=== PATIENT | female | born 1945 | race Caucasian/White ===

== ENCOUNTER 2020-09-24 07:19 | Inpatient (IN) | payer MEDICARE, SELFPAY ==
[2020-09-24] VITALS (11 sets, daily range): BP systolic 87–110; BP diastolic 46–65; PULSE 66–111; RESP 16–20; TEMP 37–37.7; O2SAT 93–98; BMI 24.0
--- NOTE | 2020-09-24 07:32 | XR_ITS ---
EXAMINATION: XR CHEST CLINICAL INFORMATION: Dyspnea COMPARISON: None TECHNIQUE: AP portable view of the chest was obtained. FINDINGS: There is bilateral mild interstitial prominence lung bases without confluent disease identified. Bibasilar atelectasis appears to be present and I cannot rule out small right pleural effusion. Heart normal size. No evidence of pulmonary edema. No pneumothorax. XR/XR chest 1V IMPRESSION: Mild interstitial disease lung bases which may be acute or chronic in nature. No significant confluent parenchymal disease with question small right pleural effusion.
--- NOTE | 2020-09-24 07:32 | ECG_ITS ---
Test Reason : SOB Blood Pressure : / mmHG Vent. Rate : 092 BPM Atrial Rate : 092 BPM P-R Int : 140 ms QRS Dur : 058 ms QT Int : 380 ms P-R-T Axes : 070 063 063 degrees QTc Int : 469 ms Sinus rhythm with frequent Premature ventricular complexes Possible Left atrial enlargement Nonspecific ST and T wave abnormality Abnormal ECG No previous ECGs available Referred By: Mckenna Crarion Electronically Signed By:SANDRA GUEVARA MD
--- NOTE | 2020-09-24 07:34 | ED.SOB ---
HPI - SOB/Dyspnea General Chief Complaint: Dyspnea Stated Complaint: Covid Symptoms Time Seen by Provider: 09/24/20 07:31 Source: patient Mode of arrival: ambulatory Limitations: no limitations History of Present Illness MD elicited complaint: shortness of breath Pertinent past history: other (around daughter who just tested positive for COVID) Onset (ago): day(s) (yesterday) Context: recent illness (on macrobid for UTI ) Timing: intermittent Severity: mild Exacerbating factors: exertion Relieving factors: rest Associated symptoms: cough, dizziness and lightheadedness Treatment prior to arrival: none Related Data Home Medications Medication Instructions Recorded Confirmed No Known Home Meds 09/24/20 09/24/20 Allergies Allergy/AdvReac Type Severity Reaction Status Date / Time No Known Allergies Allergy Verified 09/24/20 07:32 Review of Systems Review of Systems: Constitutional : No Fever, pos Chills ENT/Mouth : No sore throat, No Rhinorrhea, No Swallowing Difficulty Eyes: No Eye Pain, No Swelling, No Redness Cardiovascular : No Chest Pain, positive SOB, No Orthopnea, no Edema Respiratory : No Cough, No Sputum, No Wheezing, positive dyspnea Gastrointestinal : No Nausea, No Vomiting, No Diarrhea, No abdominal Pain, No Hematochezia, No Melena Genitourinary : No Dysuria, No Urinary Frequency, No Hematuria Musculoskeletal : No joint pain, No Myalgias Skin : No Skin Lesions, No rash Neuro : No Weakness, No Numbness, pos Dizziness, No Headache Psych : No Anxiety/Panic, No Depression All other systems reviewed and are negative PMFSH Past Medical History Attestation statement: The following information was validated with the patient. Medical History (Updated 09/24/20 @ 15:37 by PATRICIA Tate) Tobacco dependence UTI (urinary tract infection) Surgical History (Updated 09/24/20 @ 15:34 by PATRICIA Tate) No significant past surgical history Family History Family History Father Stroke Social History Social History (Updated 09/24/20 @ 15:34 by PATRICIA Tate) Alcohol intake: never Smoking Status: Current every day smoker Packs Per Day: 1 Use of substances other than those prescribed or required for medical reasons: No Advance Directives: No Advance Directives Information Provided: No Physical Exam Vital Signs: Vital Signs: Last Vital Signs Temp 98.9 F 09/24/20 15:14 Pulse 75 09/24/20 15:14 Resp 16 09/24/20 15:14 BP 93/65 09/24/20 15:30 Pulse Ox 97 09/24/20 15:14 Body Mass Index 24.0 Appearance: Alert. Oriented X3. No acute distress. Eyes: Pupils equal, round and reactive to light. ENT: Pharynx normal. Neck: Normal inspection. Neck supple. CVS: Normal heart rate and rhythm. Pulses normal. Respiratory: No respiratory distress. Breath sounds diminished. Abdomen: Soft and non-tender. Skin: Skin warm and dry. Normal skin color. Normal skin turgor. superficial skin tear dorsum of left hand Extremities: No lower extremity edema. No calf ttp Neuro: Oriented X 3. No motor deficit. No sensory deficit. Course Course Course Narrative: BP 87/51 - 88% with ambulation on 3L NC, covid negative, ddimer high will possibly need CTA at this time, has no chest pain, 500cc bolus ordered, ceftriaxone and azithromycin ordered, added on dexamethasone given suspected COVID based off history and presentation - 30cc/kg bolus held in light of possible ARDs complication her labs, lactic acidosis and hypotension likely due to COVID infection and not bacterial infection. BPs have been low but she is asymptomatic - her HR has been in 80s she is voiding and up and walking - she is alert and oriented x 3, will discuss with ICU at this time I do not think she needs ICU or pressors at the moment, gentle hydration ordered BP 90/44 pending call back from ICU [id number] BP now 97/56 - ICU has reviewed as well, no need for ICU at this time, ECHO - normal RV IVC collapses will give additional IVF 250cc bolus MDM - SOB/Dyspnea MDM Narrative Medical decision making narrative: 75 yo female with dyspnea, intermittent dizziness, low grade temps exposed to daughter who has COVID - patient denies sig PMH but has been a lifelong smoker at this time will need labs, CXR, COVID swab, albuterol INH, tylenol, EKG, ddimer dispo per results and findings, currently 95%on RA, suspect COVID infection. Lab Data Result diagrams: 09/24/20 07:54 09/24/20 07:54 Labs: Lab Results 09/24/20 09/24/20 09/24/20 Range/Units 07:53 07:54 07:54 WBC 12.3 H (4.8-10.8) X10*3/uL RBC 5.15 (4.20-5.50) X10*6/uL Hgb 15.2 (12.0-16.0) g/dl Hct 45.0 (37-47) % MCV 87.4 (80-98) fL MCH 29.5 (27.0-33.0) pg MCHC 33.8 (31.0-35.0) g/dl RDW 13.4 (11.0-16.0) % Plt Count 251 (160-400) X10*3/uL MPV 10.0 (9.4-12.3) fL Immature Gran % (Auto) Cancelled Neut % (Auto) Cancelled Lymph % (Auto) Cancelled [place] % (Auto) Cancelled Eos % (Auto) Cancelled Baso % (Auto) Cancelled Lymph # (Auto) Cancelled [place] # (Auto) Cancelled Eos # (Auto) Cancelled Baso # (Auto) Cancelled Abs Immat Gran (auto) Cancelled Absolute Neuts (auto) Cancelled Absolute Nucleated RBC 0.000 (0.0-0.012) X10*3/uL Nucleated RBC % (auto) 0.0 (0.0-0.2) /100WBC Neutrophils % (Manual) 63 (45-73) % Band Neutrophils % 26 H (3-5) % Lymphocytes % (Manual) 2 L (20-40) % Monocytes % (Manual) 4 (2-11) % Eosinophils % (Manual) 5 H (0-4) % Abs Neuts (Manual) 10.9 H (2.2-7.9) X10*3/uL Lymphocytes # (Manual) 0.2 L (0.6-4.8) X10*3/uL Monocytes # (Manual) 0.5 (0.0-1.2) X10*3/uL Eosinophils # (Manual) 0.6 (0.0-0.8) X10*3/UL Toxic Vacuolation PRESENT Platelet Estimate NORMAL (NORMAL) Plt Morphology Comment NORMAL RBC Morphology NOTED [place] Cells 1+ PT 14.2 H (10.8-13.0) SEC INR 1.2 H (0.9-1.1) APTT 32.9 (24.1-38.0) SEC D-Dimer 3170 NG/ML Sodium (135-145) mmol/L Potassium (3.3-5.1) mmol/l Chloride (96-108) mmol/L Carbon Dioxide (22-29) mmol/L Anion Gap (12-20) BUN (9-16) mg/dL Creatinine (0.5-1.4) mg/dL Estim Creat Clear Calc Estimated GFR Random Glucose (60-115) mg/dL Lactic Acid (0.5-2.0) mmol/L Lactic Acid Fup @ 2Hr (0.5-2.0) mmol/L Calcium (8.4-10.2) mg/dL Magnesium (1.6-2.6) mg/dL Ferritin (10-250) ng/mL Total Bilirubin (0.0-1.0) mg/dL Direct Bilirubin (0.0-0.5) mg/dL AST (5-31) U/L ALT (0-31) U/L Alkaline Phosphatase (39-117) U/L Lactate Dehydrogenase (122-220) U/L Troponin I High Sens 24.7 H (<3.5-17.0) ng/L B-Natriuretic Peptide 393 H (<100) pg/mL Total Protein (6.5-8.0) g/dL Albumin (3.5-5.0) g/dL Procalcitonin ng/mL Urine Color Urine Appearance Urine pH (5.0-8.0) Ur Specific [place] (1.005-1.025) Urine Protein (NEG-TRACE) MG/DL Urine Glucose (UA) (NEG) MG/DL Urine Ketones (NEG) MG/DL Urine Blood (NEG) Urine Nitrite (NEG) Ur Leukocyte Esterase (NEG) Urine RBC (0) /HPF Urine WBC (0-4) /HPF Ur Squamous Epith Cells /LPF Ur Renal Epithelial Cell /LPF Urine Bacteria /LPF Urine Mucus /LPF Coronavirus (PCR) (Negative) Influenza Type A (PCR) (Negative) Influenza Type B (PCR) (Negative) RSV RNA Qual (PCR) (Negative) 09/24/20 09/24/20 09/24/20 Range/Units 07:54 07:54 07:54 WBC (4.8-10.8) X10*3/uL RBC (4.20-5.50) X10*6/uL Hgb (12.0-16.0) g/dl Hct (37-47) % MCV (80-98) fL MCH (27.0-33.0) pg MCHC (31.0-35.0) g/dl RDW (11.0-16.0) % Plt Count (160-400) X10*3/uL MPV (9.4-12.3) fL Immature Gran % (Auto) Neut % (Auto) Lymph % (Auto) [place] % (Auto) Eos % (Auto) Baso % (Auto) Lymph # (Auto) [place] # (Auto) Eos # (Auto) Baso # (Auto) Abs Immat Gran (auto) Absolute Neuts (auto) Absolute Nucleated RBC (0.0-0.012) X10*3/uL Nucleated RBC % (auto) (0.0-0.2) /100WBC Neutrophils % (Manual) (45-73) % Band Neutrophils % (3-5) % Lymphocytes % (Manual) (20-40) % Monocytes % (Manual) (2-11) % Eosinophils % (Manual) (0-4) % Abs Neuts (Manual) (2.2-7.9) X10*3/uL Lymphocytes # (Manual) (0.6-4.8) X10*3/uL Monocytes # (Manual) (0.0-1.2) X10*3/uL Eosinophils # (Manual) (0.0-0.8) X10*3/UL Toxic Vacuolation Platelet Estimate (NORMAL) Plt Morphology Comment RBC Morphology [place] Cells PT (10.8-13.0) SEC INR (0.9-1.1) APTT (24.1-38.0) SEC D-Dimer NG/ML Sodium 135 (135-145) mmol/L Potassium 4.5 (3.3-5.1) mmol/l Chloride 99 (96-108) mmol/L Carbon Dioxide 24 (22-29) mmol/L Anion Gap 17 (12-20) BUN 19 H (9-16) mg/dL Creatinine 1.21 (0.5-1.4) mg/dL Estim Creat Clear Calc 35.7 Estimated GFR 44 Random Glucose 142 H (60-115) mg/dL Lactic Acid 3.4 H* (0.5-2.0) mmol/L Lactic Acid Fup @ 2Hr (0.5-2.0) mmol/L Calcium 8.7 (8.4-10.2) mg/dL Magnesium 1.9 (1.6-2.6) mg/dL Ferritin 361 H (10-250) ng/mL Total Bilirubin 1.0 (0.0-1.0) mg/dL Direct Bilirubin 0.5 (0.0-0.5) mg/dL AST 117 H (5-31) U/L ALT 90 H (0-31) U/L Alkaline Phosphatase 98 (39-117) U/L Lactate Dehydrogenase 417 H (122-220) U/L Troponin I High Sens (<3.5-17.0) ng/L B-Natriuretic Peptide (<100) pg/mL Total Protein 6.7 (6.5-8.0) g/dL Albumin 4.1 (3.5-5.0) g/dL Procalcitonin 0.49 ng/mL Urine Color Urine Appearance Urine pH (5.0-8.0) Ur Specific [place] (1.005-1.025) Urine Protein (NEG-TRACE) MG/DL Urine Glucose (UA) (NEG) MG/DL Urine Ketones (NEG) MG/DL Urine Blood (NEG) Urine Nitrite (NEG) Ur Leukocyte Esterase (NEG) Urine RBC (0) /HPF Urine WBC (0-4) /HPF Ur Squamous Epith Cells /LPF Ur Renal Epithelial Cell /LPF Urine Bacteria /LPF Urine Mucus /LPF Coronavirus (PCR) (Negative) Influenza Type A (PCR) (Negative) Influenza Type B (PCR) (Negative) RSV RNA Qual (PCR) (Negative) 09/24/20 09/24/20 09/24/20 Range/Units 08:01 08:55 10:27 WBC (4.8-10.8) X10*3/uL RBC (4.20-5.50) X10*6/uL Hgb (12.0-16.0) g/dl Hct (37-47) % MCV (80-98) fL MCH (27.0-33.0) pg MCHC (31.0-35.0) g/dl RDW (11.0-16.0) % Plt Count (160-400) X10*3/uL MPV (9.4-12.3) fL Immature Gran % (Auto) Neut % (Auto) Lymph % (Auto) [place] % (Auto) Eos % (Auto) Baso % (Auto) Lymph # (Auto) [place] # (Auto) Eos # (Auto) Baso # (Auto) Abs Immat Gran (auto) Absolute Neuts (auto) Absolute Nucleated RBC (0.0-0.012) X10*3/uL Nucleated RBC % (auto) (0.0-0.2) /100WBC Neutrophils % (Manual) (45-73) % Band Neutrophils % (3-5) % Lymphocytes % (Manual) (20-40) % Monocytes % (Manual) (2-11) % Eosinophils % (Manual) (0-4) % Abs Neuts (Manual) (2.2-7.9) X10*3/uL Lymphocytes # (Manual) (0.6-4.8) X10*3/uL Monocytes # (Manual) (0.0-1.2) X10*3/uL Eosinophils # (Manual) (0.0-0.8) X10*3/UL Toxic Vacuolation Platelet Estimate (NORMAL) Plt Morphology Comment RBC Morphology [place] Cells PT (10.8-13.0) SEC INR (0.9-1.1) APTT (24.1-38.0) SEC D-Dimer NG/ML Sodium (135-145) mmol/L Potassium (3.3-5.1) mmol/l Chloride (96-108) mmol/L Carbon Dioxide (22-29) mmol/L Anion Gap (12-20) BUN (9-16) mg/dL Creatinine (0.5-1.4) mg/dL Estim Creat Clear Calc Estimated GFR Random Glucose (60-115) mg/dL Lactic Acid (0.5-2.0) mmol/L Lactic Acid Fup @ 2Hr 1.3 (0.5-2.0) mmol/L Calcium (8.4-10.2) mg/dL Magnesium (1.6-2.6) mg/dL Ferritin (10-250) ng/mL Total Bilirubin (0.0-1.0) mg/dL Direct Bilirubin (0.0-0.5) mg/dL AST (5-31) U/L ALT (0-31) U/L Alkaline Phosphatase (39-117) U/L Lactate Dehydrogenase (122-220) U/L Troponin I High Sens (<3.5-17.0) ng/L B-Natriuretic Peptide (<100) pg/mL Total Protein (6.5-8.0) g/dL Albumin (3.5-5.0) g/dL Procalcitonin ng/mL Urine Color DARK YELLOW Urine Appearance HAZY Urine pH 5.5 (5.0-8.0) Ur Specific [place] 1.025 (1.005-1.025) Urine Protein 2+ H (NEG-TRACE) MG/DL Urine Glucose (UA) NEG (NEG) MG/DL Urine Ketones NEG (NEG) MG/DL Urine Blood 2+ H (NEG) Urine Nitrite NEG (NEG) Ur Leukocyte Esterase 2+ H (NEG) Urine RBC 5-9 H (0) /HPF Urine WBC 76-150 H (0-4) /HPF Ur Squamous Epith Cells 3+ /LPF Ur Renal Epithelial Cell 1+ /LPF Urine Bacteria 3+ /LPF Urine Mucus 3+ /LPF Coronavirus (PCR) NEGATIVE (Negative) Influenza Type A (PCR) NEGATIVE (Negative) Influenza Type B (PCR) NEGATIVE (Negative) RSV RNA Qual (PCR) NEGATIVE (Negative) ECG Data Attestation: I personally reviewed and interpreted this ECG as follows: ECG interpretation date: 09/24/20 ECG interpretation time: 08:40 Interpretation: Rate: 91 Rhythm: NSR with occ PVCs [place]: normal Normal P waves. Normal ROBBIE. Normal QRS complex. ST T wave : nonspecific no CARMELA, slight depression V5-V6 but artifact present qTC: normal prior studies: none The study has been interpreted contemporaneously by me. . Critical Care Time Critical Care Time Critical Care Time: Yes Total Critical Care Time: 60 Attestation: I attest to this time spent taking care of the patient Discharge Plan Discharge Clinical Impression: Acidosis, lactic, Pneumonia Patient Disposition: Admitted As Inpatient
[2020-09-24] MEDS: Albuterol Sulfate 90 MCG 8 GM INHALER 4 PUFF INHALE (07:40)
[2020-09-24] MEDS: Acetaminophen 325 MG TABLET 650 MG PO (07:40)
[2020-09-24 08:15] LABS: Hemoglobin 15.2 g/dl (12.0-16.0); Mean Corpuscular HGB Conc 33.8 g/dl (31.0-35.0); Mean Corpuscular Hemoglobin 29.5 pg (27.0-33.0); Mean Corpuscular Volume 87.4 fL (80-98); Platelet Count 251 X10*3/uL (160-400); Red Blood Count 5.15 X10*6/uL (4.20-5.50); Red Cell Distribution Width 13.4 % (11.0-16.0); White Blood Count 12.3 X10*3/uL (4.8-10.8)
[2020-09-24 08:36] LABS: D Dimer 3170 NG/ML; INTERNATIONAL NORM RATIO 1.2 (0.9-1.1); Partial Thromboplastin Time 32.9 SEC (24.1-38.0); Prothrombin Time 14.2 SEC (10.8-13.0)
[2020-09-24 08:37] LABS: Band Neutrophils Percent 26 % (3-5); Eosinophils Absolute Manual 0.6 X10*3/UL (0.0-0.8); Eosinophils Percent Manual 5 % (0-4); Lymphocytes Absolute Manual 0.2 X10*3/uL (0.6-4.8); Lymphocytes Percent Manual 2 % (20-40); Monocytes Absolute Manual 0.5 X10*3/uL (0.0-1.2); Monocytes Percent Manual 4 % (2-11); Neutrophils Absolute Manual 10.9 X10*3/uL (2.2-7.9); Neutrophils Percent Manual 63 % (45-73)
[2020-09-24 08:38] LABS: Burr Cells 1+; Platelet Estimate NORMAL (NORMAL); Platelet Morphology Comment NORMAL; RBC Morphology NOTED
[2020-09-24 08:39] LABS: Lactic Acid 3.4 mmol/L (0.5-2.0); Toxic Vacuolation PRESENT
[2020-09-24 08:42] LABS: Alanine Aminotransferase 90 U/L (0-31); Albumin Level 4.1 g/dL (3.5-5.0); Alkaline Phosphatase 98 U/L (39-117); Anion Gap 17 (12-20); Aspartate Amino Transferase 117 U/L (5-31); Bilirubin Direct 0.5 mg/dL (0.0-0.5); Blood Urea Nitrogen 19 mg/dL (9-16); Calcium 8.7 mg/dL (8.4-10.2); Carbon Dioxide 24 mmol/L (22-29); Chloride 99 mmol/L (96-108); Creatinine Clr Calc Pharmacy 35.7; Estimated Glomerular Filt Rate 44; Glucose Random 142 mg/dL (60-115); Lactate Dehydrogenase 417 U/L (122-220); Magnesium 1.9 mg/dL (1.6-2.6); Potassium 4.5 mmol/l (3.3-5.1); Sodium 135 mmol/L (135-145); Total Protein 6.7 g/dL (6.5-8.0)
[2020-09-24] MEDS: 0.9 % Sodium Chloride 500 ML IV ×2 (08:42→12:45)
[2020-09-24 08:50] LABS: Influenza A PCR NEGATIVE (Negative); Influenza B PCR NEGATIVE (Negative); Resp Syncy Virus RNA Qual PCR NEGATIVE (Negative); SARS COV2 PCR INHOUSE NEGATIVE (Negative)
[2020-09-24] MEDS: cefTRIAXone sodium 1 GM in 0.9 % Sodium Chloride 50 ML IV (08:51)
[2020-09-24 08:57] LABS: B Type Natriuretic Peptide 393 pg/mL (<100); Troponin-I High Sensitivity 24.7 ng/L (<3.5-17.0)
--- NOTE | 2020-09-24 09:17 | PC.NURSE ---
pt ambulated to bathroom for ua spec w slow, steady gait. upon return to pt room, pt found to be on 88% spo2 ra. placed on nc 3l o2/min, spo2 ^ 93%. pt rr even/unlabored at time of return to room. pt also found to be hypotensive, provider aware and at bedside.
[2020-09-24 09:24] LABS: Glucose Urine UA NEG (NEG); Leukocyte Esterase Urine 2+ (NEG); Nitrite Urine NEG (NEG); PH 5.5 (5.0-8.0); Specific Gravity - Urine 1.025 (1.005-1.025); Urine Blood 2+ (NEG); Urine Ketones NEG (NEG); Urine Protein 2+ MG/DL (NEG-TRACE)
[2020-09-24 09:27] LABS: Appearance Urine HAZY; Color Urine DARK YELLOW
[2020-09-24] MEDS: dexAMETHasone 6 MG TABLET PO (09:30)
[2020-09-24] MEDS: Azithromycin 500 MG TABLET PO (09:30)
[2020-09-24 09:33] LABS: Bacteria Urine 3+ /LPF; Renal Epithelial Cells Urine 1+ /LPF; Squamous Epithelial Cell Urine 3+ /LPF
[2020-09-24 09:34] LABS: Mucus Urine 3+ /LPF
--- NOTE | 2020-09-24 09:43 | PC.NURSE ---
provider at bedside to discuss plan for inpt admission. pt family updated on plan of care.
--- NOTE | 2020-09-24 09:44 | CT_ITS ---
EXAMINATION: CT CHEST WITHOUT CONTRAST CLINICAL INFORMATION: Weakness, fevers, suspected. COMPARISON: None TECHNIQUE: Multidetector volumetric CT imaging of the chest was done. Axial MIP volume rendering provided. Sagittal and coronal reformatted images were obtained. This CT examination was performed using dose optimization techniques as appropriate, variously including the following: *Automated exposure control *Adjustment of mA and/or kV according to patient size (this includes techniques or standardized protocols for targeted exams where dose is matched to indication/reason for exam; i.e. extremities or head) *Use of iterative reconstruction technique DLP: 144 mGy-cm FINDINGS: LAY OUT AND DETAIL DRAFTER: Hyperinflated lungs. LUNGS: There is centrilobular emphysema with bullous changes in the apices. There is a 5 minute left apical nodule and axial image 67/6, ill-defined 3 mm nodule left upper lobe axial image 195/6, mild focal thickening medial upper left major fissure axial image 190/6. There is patchy confluent infiltrate in both lung bases, right greater than left. There is mild bilateral lower lobe bronchiectasis. MEDIASTINUM: Heart size and the great vessels are normal caliber. The thyroid lobes are symmetrical. Central trachea and the bronchi widely patent. There are 1 cm pretracheal and aortic window lymph nodes. Minimal pericardial effusion seen anteriorly. Coronary artery calcifications are present. PLEURA: There is bilateral posterior pleural thickening/effusions. No calcified pleural lacks or pneumothorax. AXILLA: Small shotty lymph nodes seen in bilateral axilla. The chest wall is unremarkable. UPPER ABDOMEN: Visualized liver, spleen, pancreas are unremarkable. OSSEOUS STRUCTURES: No lytic or sclerotic process seen. CT/CT chest wo con IMPRESSION: Emphysema with bibasilar infiltrates and small bilateral pleural effusions/thickening
[2020-09-24 10:12] LABS: Reflex Lactate? Lactic Acid Added
[2020-09-24 10:15] LABS: Ferritin 361 ng/mL (10-250)
[2020-09-24 10:17] LABS: Procalcitonin 0.49 ng/mL
--- NOTE | 2020-09-24 11:04 | PC.NURSE ---
pt belongings dropped off by family member, pt is resting in stretcher, appears comfortable, spo2 and hr stable
[2020-09-24 11:08] LABS: ~Lactic Acid-LAB USE ONLY 1.3 mmol/L (0.5-2.0)
[2020-09-24] MEDS: 0.9 % Sodium Chloride 1,000 ML 250 ML IVCONT (11:41)
--- NOTE | 2020-09-24 11:41 | W.PM.CCCN ---
History of Present Illness Data of Consult Service Date: 09/24/20 Requesting physician: Mckenna Carrion Primary Care Provider: Olvin MIRAMONTES Reason for consult: Hypotension Asked by Dr. Carrion to see Mrs. Steve peres of hypotension. The patient is a 75 yo F with no PMHx. Never been hospitalized except to have children. The patient says she recently was treated for UTI with Macrobid. The patient was walking to the ED this morning because of dyspnea on exertion since yesterday, associated with cough, dizziness, and lightheadedness, and chills. Denied fever. No GI symptoms. The patient is a current everyday smoker. The patient does not know what her usual blood pressure is. She weighs 63 kg. In the ED she was nontoxic-appearing and not ill appearing. Heart rate initially was 111, with blood pressure 105/57, respiratory rate 18, and sat of 95% on room air. Temperature was 99.9 degrees. Blood pressure subsequently dropped to 87/51. Sat on ambulation with 3 L nasal cannula was 88%. Up to 98% at rest on 2.5 L nasal cannula. Labs in the ED notable for white count of 12.3 with 26% bands, 2% lymphocytes. Chemistries notable for BUN and creatinine 19/1.2. Bicarb was 24. Total bili was normal, AST and ALT were 117/90, LDH was 417, trop was 24, BNP was 393, Lactic acid was 3.4. D-dimer was 3170. Ferritin was 361, procalcitonin was 0.4. Respiratory virus panel, including coronavirus, was negative. Chest x-ray (my reading) shows somewhat hyper expanded lung melgar, with mild increased interstitial markings, all consistent with chronic lung disease. Both angles are very slightly blunted. Chest CT (my reading) shows marked increased interstitial markings and emphysematous changes. There are very small subtle posterior bibasilar infiltrates. The CT scan is clearly inconsistent with either COVID pneumonia or pulmonary edema. The patient was given low-dose volume resuscitation in the ED. Following that, the lactic acid was normal. I was then called to see the patient. On my brief exam, the patient looked entirely well. She was breathing easy with a respiratory rate of 20 with no increased work of breathing and sat of 98% on 2.5 L nasal cannula. Mental status was entirely normal. I viewed Dr. Carrion is a bedside echo. Biventricular size and function is normal. IVC is top-normal with less than 25% inspiratory collapse. IMPRESSION: 1. Chronic lung disease, undoubtedly secondary from smoking. 2. Acute hypoxemic respiratory insufficiency. The cause of this is unclear at this time. Coronavirus disease is obviously a prime candidate, given the local situation and given her known exposure. 3. Bilat pulmon infiltrates. Inconsist with COVID-19. Could possibly be early pneumonia, of any kind (viral or bacterial). [place] giving two days of empiric abx for bacterial CAP to see how things shake out. 4. Rule out COVID-19. Biomarkers are positive, altho nonspecific. No surprise that her COVID-19 PCR was negative; it is likely too early. I would isolate her and treat her for it, including enoxaparin, methylprednisolone, and Pepcid, as below. Would repeat her PCR in 4-5 days. If still negative at that time, can stop the treatment. No harm if we?re wrong. 5. Volume status. Her IVC suggests near adequate vol resusc. Suggest maybe another 250 cc, plus 50cc 25% albumin. Recommend the following: -Vitamin C 1000 mg po q 6 hours -Zinc 100 mg po daily -Melatonin 9 mg at night -Vitamin D3 2000 units daily -B complex vitamin daily -Enoxaparin ? mg/kg bid -Methylprednisolone 40 mg q 12 hourly -Famotidine 40 mg BID (IV or po) -Thiamine 200 mg po q 12 hours -Magnesium 2 g IV, then keep Mg between 2.0 and 2.4 mmol/l. -Atorvastatin 80 mg/day. Monitoring: Daily VBG, DDimer, CRP, Ferritin, procalcitonin, and Mg with her usual morning labs. No need for intensive care monitoring or mx at this time. Time: 50 min ([id number]) [facility] Past Medical History Medical History UTI (urinary tract infection) Social History Social History Alcohol intake: never Smoking Status: Current every day smoker Use of substances other than those prescribed or required for medical reasons: No Advance Directives: No Advance Directives Information Provided: No Meds Allergies Allergy/AdvReac Type Severity Reaction Status Date / Time No Known Allergies Allergy Verified 09/24/20 07:32 Home Medications Medication Instructions Recorded Confirmed Type No Known Home Meds 09/24/20 09/24/20 History Physical Exam Vital Signs: Vital Signs: Last Vital Signs Temp 99.0 F 09/24/20 10:37 Pulse 80 09/24/20 10:37 Resp 16 09/24/20 10:37 BP 97/56 L 09/24/20 11:38 Pulse Ox 98 09/24/20 10:37 Body Mass Index 24.0 Results Labs CBC & Chem 7: 09/24/20 07:54 09/24/20 07:54 Labs: Short CBC 09/24/20 Range/Units 07:54 WBC 12.3 H (4.8-10.8) X10*3/uL Hgb 15.2 (12.0-16.0) g/dl Hct 45.0 (37-47) % Plt Count 251 (160-400) X10*3/uL BMP 09/24/20 07:54 Sodium 135 Potassium 4.5 Chloride 99 Carbon Dioxide 24 BUN 19 H Creatinine 1.21 Calcium 8.7 Liver Function 09/24/20 Range/Units 07:54 Total Bilirubin 1.0 (0.0-1.0) mg/dL Direct Bilirubin 0.5 (0.0-0.5) mg/dL AST 117 H (5-31) U/L ALT 90 H (0-31) U/L Alkaline Phosphatase 98 (39-117) U/L Albumin 4.1 (3.5-5.0) g/dL Urine 09/24/20 Range/Units 08:55 Urine Color DARK YELLOW Urine Appearance HAZY Urine pH 5.5 (5.0-8.0) Ur Specific [place] 1.025 (1.005-1.025) Urine Protein 2+ H (NEG-TRACE) MG/DL Urine Glucose (UA) NEG (NEG) MG/DL
--- NOTE | 2020-09-24 11:43 | PC.NURSE ---
dr ontiveros and acting instructor at bedside for fast echo w us. medicated further per emar. pt changed to hospital attire.
[2020-09-24] MEDS: Albumin Human 25 % 100 ML IV (14:38)
--- NOTE | 2020-09-24 15:25 | NM_ITS ---
EXAMINATION: PULMONARY PERFUSION STUDY CLINICAL INFORMATION: Dyspnea, weakness, and fevers, suspected pulmonary emboli. COMPARISON: No previous lung scan is available for comparison. A radiograph the chest dated 09/24/2020, the same date as this lung scan, is available for comparison. Chest CT scan on the same date is also available. TECHNIQUE: Following the intravenous injection of 3.4 mCi Tc-99m MAA, an 8-view perfusion study was performed using a gamma scintillation camera. FINDINGS: No segmental perfusion defects are present. There is homogeneous distribution of activity bilaterally. There are no focal anatomic appearing perfusion defects present. NM/NM pul perfusion IMPRESSION: Normal radionuclide lung perfusion scan.
--- NOTE | 2020-09-24 15:26 | PM.IMHP ---
History of Present Illness Date of Service: 09/24/20 <PATRICIA Tate Last Filed: 09/24/20 15:57> Chief Complaint: flu-like symptoms <PATRICIA Tate Last Filed: 09/24/20 15:57> this is a 75-year-old female who presented to the emergency department today with multiple symptoms. Patient saw her daughter on MondaySeptember 19. Her daughter later tested positive for COVID-19. For the past 2 days she reports decreased p.o. intake, generalized weakness, body aches, dry cough. She denies fever. COVID screening in the emergency department was negative. Her lab work was significant for lactic acid 3.4, leukocytosis 12.3. Ferritin 361, LDH 417, procalcitonin 0.49. CT scan of the chest showed concern for pneumonia. She was started on IV antibiotics. patient also reports she is being treated for outpatient UTI with Macrobid. Her urinalysis today is positive. she denies any dysuria at this time. She denies vomiting or diarrhea. <PATRICIA Tate - Last Filed: 09/24/20 15:57> Review of Systems Review of Systems: Yes all other systems are reviewed and are negative <PATRICIA Tate Last Filed: 09/24/20 15:57> Constitutional: Constitutional: Denies chills, Denies fever(s), Reports lethargy, Reports malaise, Reports poor appetite and Reports weakness <PATRICIA Tate Last Filed: 09/24/20 15:57> Cardiovascular: Cardiovascular: Denies chest pain, Denies palpitations and Reports dyspnea <PATRICIA Tate Last Filed: 09/24/20 15:57> Respiratory: Respiratory: Reports cough and Reports dyspnea <PATRICIA Tate Last Filed: 09/24/20 15:57> Gastrointestinal: Gastrointestinal: Denies abdominal pain <PATRICIA Tate Last Filed: 09/24/20 15:57> Neurologic: Reports weakness <PATRICIA Tate Last Filed: 09/24/20 15:57> Endocrine: Endocrine: Denies palpitations <PATRICIA Tate Last Filed: 09/24/20 15:57> [facility] Medical History: Medical History (Updated 09/25/20 @ 10:10 by Doug Calvillo MD) COPD (chronic obstructive pulmonary disease) Pneumonia Tobacco dependence Tobacco dependence UTI (urinary tract infection) <PATRICIA Tate - Last Filed: 09/24/20 15:57> Functional capacity: independent ambulation <PATRICIA Tate - Last Filed: 09/24/20 15:57> Family History: Family History Father Stroke <PATRICIA Tate - Last Filed: 09/24/20 15:57> Surgical History: Surgical History (Updated 09/24/20 @ 15:34 by PATRICIA Tate) No significant past surgical history <PATRICIA Tate - Last Filed: 09/24/20 15:57> Social History: Social History (Updated 09/24/20 @ 15:34 by PATRICIA Tate) Household Members: None Housing: Condominium Do you presently have visiting nurse or other home services: No Alcohol intake: never Smoking Status: Current every day smoker Tobacco Type: Cigarette Packs Per Day: 1 Cigarettes Per Day: 20.0 Smoked in Last 30 Days: Yes Patient Interested in Nicotine Replacement: Yes Patient Given Instructions on How to Stop Smoking: No Second Hand Smoke Exposure: Yes Use of substances other than those prescribed or required for medical reasons: No Currently Displaying Signs/Symptoms of Drug Intoxication Withdrawal: No Any prior treatment program specific to substance use: No Have you been hit, kicked, punched, or otherwise hurt by someone within the past year? If so, by whom?: No Do you feel safe in your current relationship?: No Current Relationship Is there a partner from a previous relationship who is making you feel unsafe now?: No Are you made to feel afraid or neglected: No Advance Directives: No Advance Directives Information Provided: No Do you have thoughts of harming others: None Do you have a plan to hurt others: No Plan Recently lost weight without trying: No service: No Current occupational status: retired <PATRICIA Tate - Last Filed: 09/24/20 15:57> Meds Allergies/Adverse reactions: Allergies Allergy/AdvReac Type Severity Reaction Status Date / Time No Known Allergies Allergy Verified 09/24/20 07:32 <PATRICIA Tate - Last Filed: 09/24/20 15:57> Home medications: Home Medications Medication Instructions Recorded Confirmed Type No Known Home Meds 09/24/20 09/24/20 History <PATRICIA Tate - Last Filed: 09/24/20 15:57> Physical Exam Vital Signs and Narrative: Vital Signs: Last Vital Signs Temp 98.9 F 09/24/20 15:14 Pulse 75 09/24/20 15:14 Resp 16 09/24/20 15:14 BP 94/65 09/24/20 15:14 Pulse Ox 97 09/24/20 15:14 Body Mass Index 24.0 <PATRICIA Tate - Last Filed: 09/24/20 15:57> Const: Nutritional Appearance: well nourished <PATRICIA Tate - Last Filed: 09/24/20 15:57> Orientation/consciousness: patient oriented x3 <PATRICIA Tate - Last Filed: 09/24/20 15:57> HENMT: Head: Yes normocephalic and Yes atraumatic <PATRICIA Tate - Last Filed: 09/24/20 15:57> Eyes: Sclerae: sclerae normal <PATRICIA Tate - Last Filed: 09/24/20 15:57> Chest: Chest palpation & inspection: normal inspection of the chest <PATRICIA Tate - Last Filed: 09/24/20 15:57> Resp: Effort & Inspection: normal respiratory effort and no respiratory distress <PATRICIA Tate - Last Filed: 09/24/20 15:57> Cardio: Rate: regular rate <PATRICIA Tate - Last Filed: 09/24/20 15:57> Rhythm: regular rhythm <PATRICIA Tate - Last Filed: 09/24/20 15:57> GI: Palpation (GI): Soft to palpation and nontender <PATRICIA Tate - Last Filed: 09/24/20 15:57> Skin: General skin exam: no rashes or lesions noted <PATRICIA Tate - Last Filed: 09/24/20 15:57> Neuro: General: patient oriented x3 <PATRICIA Tate - Last Filed: 09/24/20 15:57> Cranial nerves: Yes CN's II-XII intact bilaterally and Yes Bilaterally intact EOM present <PATRICIA Tate - Last Filed: 09/24/20 15:57> Extrem: General: Yes normal to inspection <PATRICIA Tate - Last Filed: 09/24/20 15:57> Results Labs CBC and Chem 7: : 09/25/20 05:18 09/25/20 05:18 <PATRICIA Tate - Last Filed: 09/24/20 15:57> Labs: Laboratory Results - last 24 hr 09/24/20 09/24/20 09/24/20 07:53 07:54 07:54 MCV 87.4 MCH 29.5 MCHC 33.8 RDW 13.4 Plt Count 251 MPV 10.0 Immature Gran % (Auto) Cancelled Neut % (Auto) Cancelled Lymph % (Auto) Cancelled [place] % (Auto) Cancelled Eos % (Auto) Cancelled Baso % (Auto) Cancelled Lymph # (Auto) Cancelled [place] # (Auto) Cancelled Eos # (Auto) Cancelled Baso # (Auto) Cancelled Abs Immat Gran (auto) Cancelled Absolute Neuts (auto) Cancelled Absolute Nucleated RBC 0.000 Nucleated RBC % (auto) 0.0 Neutrophils % (Manual) 63 Band Neutrophils % 26 H Lymphocytes % (Manual) 2 L Monocytes % (Manual) 4 Eosinophils % (Manual) 5 H Abs Neuts (Manual) 10.9 H Lymphocytes # (Manual) 0.2 L Monocytes # (Manual) 0.5 Eosinophils # (Manual) 0.6 Toxic Vacuolation PRESENT Platelet Estimate NORMAL Plt Morphology Comment NORMAL RBC Morphology NOTED [place] Cells 1+ PT 14.2 H INR 1.2 H APTT 32.9 D-Dimer 3170 Anion Gap Estim Creat Clear Calc Estimated GFR Random Glucose Lactic Acid Lactic Acid Fup @ 2Hr Calcium Magnesium Ferritin Total Bilirubin Direct Bilirubin AST ALT Alkaline Phosphatase Lactate Dehydrogenase Troponin I High Sens 24.7 H B-Natriuretic Peptide 393 H Total Protein Albumin Procalcitonin Urine Color Urine Appearance Urine pH Ur Specific [place] Urine Protein Urine Glucose (UA) Urine Ketones Urine Blood Urine Nitrite Ur Leukocyte Esterase Urine RBC Urine WBC Ur Squamous Epith Cells Ur Renal Epithelial Cell Urine Bacteria Urine Mucus Coronavirus (PCR) Influenza Type A (PCR) Influenza Type B (PCR) RSV RNA Qual (PCR) 09/24/20 09/24/20 09/24/20 07:54 07:54 07:54 MCV MCH MCHC RDW Plt Count MPV Immature Gran % (Auto) Neut % (Auto) Lymph % (Auto) [place] % (Auto) Eos % (Auto) Baso % (Auto) Lymph # (Auto) [place] # (Auto) Eos # (Auto) Baso # (Auto) Abs Immat Gran (auto) Absolute Neuts (auto) Absolute Nucleated RBC Nucleated RBC % (auto) Neutrophils % (Manual) Band Neutrophils % Lymphocytes % (Manual) Monocytes % (Manual) Eosinophils % (Manual) Abs Neuts (Manual) Lymphocytes # (Manual) Monocytes # (Manual) Eosinophils # (Manual) Toxic Vacuolation Platelet Estimate Plt Morphology Comment RBC Morphology [place] Cells PT INR APTT D-Dimer Anion Gap 17 Estim Creat Clear Calc 35.7 Estimated GFR 44 Random Glucose 142 H Lactic Acid 3.4 H* Lactic Acid Fup @ 2Hr Calcium 8.7 Magnesium 1.9 Ferritin 361 H Total Bilirubin 1.0 Direct Bilirubin 0.5 AST 117 H ALT 90 H Alkaline Phosphatase 98 Lactate Dehydrogenase 417 H Troponin I High Sens B-Natriuretic Peptide Total Protein 6.7 Albumin 4.1 Procalcitonin 0.49 Urine Color Urine Appearance Urine pH Ur Specific [place] Urine Protein Urine Glucose (UA) Urine Ketones Urine Blood Urine Nitrite Ur Leukocyte Esterase Urine RBC Urine WBC Ur Squamous Epith Cells Ur Renal Epithelial Cell Urine Bacteria Urine Mucus Coronavirus (PCR) Influenza Type A (PCR) Influenza Type B (PCR) RSV RNA Qual (PCR) 09/24/20 09/24/20 09/24/20 08:01 08:55 10:27 MCV MCH MCHC RDW Plt Count MPV Immature Gran % (Auto) Neut % (Auto) Lymph % (Auto) [place] % (Auto) Eos % (Auto) Baso % (Auto) Lymph # (Auto) [place] # (Auto) Eos # (Auto) Baso # (Auto) Abs Immat Gran (auto) Absolute Neuts (auto) Absolute Nucleated RBC Nucleated RBC % (auto) Neutrophils % (Manual) Band Neutrophils % Lymphocytes % (Manual) Monocytes % (Manual) Eosinophils % (Manual) Abs Neuts (Manual) Lymphocytes # (Manual) Monocytes # (Manual) Eosinophils # (Manual) Toxic Vacuolation Platelet Estimate Plt Morphology Comment RBC Morphology [place] Cells PT INR APTT D-Dimer Anion Gap Estim Creat Clear Calc Estimated GFR Random Glucose Lactic Acid Lactic Acid Fup @ 2Hr 1.3 Calcium Magnesium Ferritin Total Bilirubin Direct Bilirubin AST ALT Alkaline Phosphatase Lactate Dehydrogenase Troponin I High Sens B-Natriuretic Peptide Total Protein Albumin Procalcitonin Urine Color DARK YELLOW Urine Appearance HAZY Urine pH 5.5 Ur Specific [place] 1.025 Urine Protein 2+ H Urine Glucose (UA) NEG Urine Ketones NEG Urine Blood 2+ H Urine Nitrite NEG Ur Leukocyte Esterase 2+ H Urine RBC 5-9 H Urine WBC 76-150 H Ur Squamous Epith Cells 3+ Ur Renal Epithelial Cell 1+ Urine Bacteria 3+ Urine Mucus 3+ Coronavirus (PCR) NEGATIVE Influenza Type A (PCR) NEGATIVE Influenza Type B (PCR) NEGATIVE RSV RNA Qual (PCR) NEGATIVE <PATRICIA Tate - Last Filed: 09/24/20 15:57> Imaging Radiologist's Impressions: Impressions Chest X-Ray 09/24/20 07:32 IMPRESSION: Mild interstitial disease lung bases which may be acute or chronic in nature. No significant confluent parenchymal disease with question small right pleural effusion. Chest CT 09/24/20 09:44 IMPRESSION: Emphysema with bibasilar infiltrates and small bilateral pleural effusions/thickening <PATRICIA Tate - Last Filed: 09/24/20 15:57> Assessment and Plan (1) Acute respiratory failure with hypoxia: Status: Acute <PATRICIA Tate - Last Filed: 09/24/20 15:57> (2) Sepsis: Status: Acute <PATRICIA Tate - Last Filed: 09/24/20 15:57> this is a 75-year-old female with no significant past medical history who presents with shortness of breath and flu-lik symptoms found have UTI and pneumonia. Acute respiratory failure with hypoxia O2 saturation dropped to 88% with ambulation r/t pna. COVID screen negative but recent + contact and elevated LDH, ferritin ddimer 3170 -isolation -ID, pulm consult -1 dose therapeutic Lovenox -VQ scan sepsis meets criteria with tachycardia, leukocytosis possible viral, possible r/t uti initial lactic acid 3.4 focused exam completed follow-up blood cultures Blood pressure soft. ICU evaluated in ED. felt safe for floor admission IVF pneumonia can't rule out covid 19, although screening negative received 1 dose of dexamethasone in the ED -airborne/isolation precautions - IV antibiotics - ID consult, Pulmonary consult UTI failed outpatient treatment with Macrobid - IV ceftriaxone - follow-up urine culture renal insufficiency no baseline. Unclear chronicity Creatinine 1.21 - IV fluid - monitor function closely transaminitis no baseline - follow liver function pulmonary nodules -outpatient follow up DVT prophylaxis- 1 dose of therapeutic Lovenox today. follow up V/Q scan code status- full code this case was discussed with Dr. Hernandez <PATRICIA Tate - Last Filed: 09/24/20 15:57>
--- NOTE | 2020-09-24 15:30 | PC.NURSE ---
pt incontinent of liquid stool, pt sts i feel like i have to have a bowel movement . pt cleaned of soiled linens, ambulated to and from bathroom w steady gait.
[2020-09-24 15:44] LABS: COVID-19 Test Negative (Negative)
--- NOTE | 2020-09-24 15:59 | P.EN_ITS ---
Event Note Date of Service: 09/25/20 Event Note: 75 y o f with recent contact with covid positive patient her daugh gosia , presented with weakness ,sob , bodyache , in ER patient found to have leucocytosis 13 , UA was positive lab marker ferritin , LDH ,CRP and d dimer was high Ct chest shows, emphysema with bibasilar infiltrates, patient's blood pressure was initially low, recieved i/v fluids and bp improved , patient was saturating around 94-95% but dropped to 88 on ambulation patient seen and examined at bedside on exam alert abd soft , cvs rate and rhythm regular , lungs mild rhonchi admitted for acute hypoxic respiratory failure , ct chest shows bibasilar infiltreates with cough , influenza and rsv negative ,covid pcr tested twice was negative , although elevated markers including LDH , CRP ,ferritin and d dimer are suspicious for covid ,r/o viral pneumonia continue oxygen supplementation , continue i/v antibiotics , continue isolation , supportive care , will get ID and pulmonology consult elevated d dimer unable to CTA given NAZARIO , will give 1dose of therapeutic lovenox and check VQ scan uti continue rocephin and follow up culture hypotention and lactic acidosis likely secondary to poor po intake and dehydration not from sepsis patient was seen by ICU for hypotention as BP improved recomended admission to floor will monitor closely Patient seen and examined with the midlevel agree with H&P assessment and plan
--- NOTE | 2020-09-24 16:07 | PC.NURSE ---
pt taken to [facility] for scan via stretcher
--- NOTE | 2020-09-24 18:05 | PC.NURSE ---
first call for report unsuccessful will call back.
--- NOTE | 2020-09-24 18:34 | PC.NURSE ---
second call for report unsuccessful
--- NOTE | 2020-09-24 18:43 | PC.NURSE ---
report given to c júnior yu
--- NOTE | 2020-09-24 20:33 | PC.NURSE ---
Patient placed on monitor for transfer.
[2020-09-24] MEDS: 0.9 % Sodium Chloride Flush 3 ML SYRINGE IVFLUSH (21:28)
[2020-09-24] MEDS: 0.9 % Sodium Chloride 1,000 ML 100 ML IVCONT (21:29)
[2020-09-24] MEDS: Doxycycline Hyclate 100 MG in 0.9 % Sodium Chloride 250 ML 166.67 MG IV (21:36)
[2020-09-24] MEDS: Enoxaparin Sodium 60 MG/0.6 ML SYRINGE 65 MG SUBCUT (21:37)
[2020-09-25] VITALS (7 sets, daily range): BP systolic 89–104; BP diastolic 53–60; PULSE 60–76; RESP 16–18; TEMP 36.5–37.4; O2SAT 92–97
[2020-09-25 06:10] LABS: MANUAL DIFF FLAG NO
[2020-09-25 06:46] LABS: Basophils Percent Auto 0.1 % (0-2); Eosinophils Absolute Auto 0.6 X10*3/uL (0.0-0.4); Hematocrit 34.3 % (37-47); Hemoglobin 11.1 g/dl (12.0-16.0); Imm Gran Abs Auto 0.06 X10*3/uL (0.00-0.03); Imm Gran Pct Auto 0.5 % (0.0-0.4); Lymphocytes Absolute Auto 0.9 X10*3/uL (1.2-4.9); Lymphocytes Percent Auto 8.3 % (20-40); Mean Corpuscular HGB Conc 32.4 g/dl (31.0-35.0); Mean Corpuscular Hemoglobin 28.8 pg (27.0-33.0); Mean Corpuscular Volume 89.1 fL (80-98); Mean Platelet Volume 10.3 fL (9.4-12.3); Monocytes Absolute Auto 0.7 X10*3/uL (0.1-1.2); Monocytes Percent Auto 6.5 % (2-11); Neutrophils Percent Auto 79.6 % (45-73); Platelet Count 197 X10*3/uL (160-400); Red Blood Count 3.85 X10*6/uL (4.20-5.50); Red Cell Distribution Width 13.9 % (11.0-16.0); White Blood Count 11.3 X10*3/uL (4.8-10.8)
[2020-09-25 06:49] LABS: Alanine Aminotransferase 45 U/L (0-31); Albumin Level 3.3 g/dL (3.5-5.0); Alkaline Phosphatase 67 U/L (39-117); Anion Gap 11 (12-20); Aspartate Amino Transferase 29 U/L (5-31); Bilirubin Direct 0.3 mg/dL (0.0-0.5); Bilirubin Total 0.7 mg/dL (0.0-1.0); Blood Urea Nitrogen 19 mg/dL (9-16); Calcium 7.9 mg/dL (8.4-10.2); Carbon Dioxide 22 mmol/L (22-29); Chloride 111 mmol/L (96-108); Creatinine Clr Calc Pharmacy 61.8; Estimated Glomerular Filt Rate > 60; Glucose Random 100 mg/dL (60-115); Sodium 140 mmol/L (135-145); Total Protein 5.2 g/dL (6.5-8.0)
--- NOTE | 2020-09-25 10:03 | PM.CNPUL ---
History of Present Illness History of Present Illness Consult date: 09/25/20 Chief complaint: Sepsis,UTI,PNA,possible COVID Narrative: this is a 75-year-old female with COPD and tobacco dependedncy who presented to the emergency department today with multiple symptoms. Patient saw her daughter on MondaySeptember 19. Her daughter later tested positive for COVID-19. For the past 2 days she reports decreased p.o. intake, generalized weakness, body aches, dry cough. She denies fever. COVID screening in the emergency department was negative. Her lab work was significant for lactic acid 3.4, leukocytosis 12.3. Ferritin 361, LDH 417, procalcitonin 0.49. CT scan of the chest showed concern for pneumonia. She was started on IV antibiotics. patient also reports she is being treated for outpatient UTI with Macrobid. Her urinalysis today is positive. she denies any dysuria at this time. She denies vomiting or diarrhea. The patient underwent a CT chest with bibasilar consolidations and moderate amount of emphysema. Review of Systems Constitutional: Constitutional: Reports weakness ENT: Denies change in voice, Denies lip swelling, Denies mouth pain, Reports nasal congestion, Reports nasal discharge and Denies tongue swelling Cardiovascular: Cardiovascular: Denies chest pain and Reports dyspnea Respiratory: Respiratory: Reports cough and Reports dyspnea Gastrointestinal: Gastrointestinal: Denies abdominal pain Musculoskeletal: Musculoskeletal: Denies no additional musculoskeletal complaints Neurologic: Reports weakness Psychiatric: Psychiatric: Denies no additional psychiatric complaints Hematologic/Lymphatic: Hematologic/Lymphatic: Denies easy bleeding and Denies lymphadenopathy Allergic/Immunologic: Allergic/Immunologic: Denies lip swelling and Denies tongue swelling [facility] Past Medical History Medical History (Updated 09/25/20 @ 10:10 by Doug Calvillo MD) COPD (chronic obstructive pulmonary disease) Pneumonia Tobacco dependence Tobacco dependence UTI (urinary tract infection) Functional capacity: independent ambulation Family History Family History Father Stroke Surgical History Surgical History (Updated 09/24/20 @ 15:34 by PATRICIA Tate) No significant past surgical history Social History Social History (Updated 09/24/20 @ 15:34 by PATRICIA Tate) Household Members: None Housing: Condominium Do you presently have visiting nurse or other home services: No Alcohol intake: never Smoking Status: Current every day smoker Tobacco Type: Cigarette Packs Per Day: 1 Cigarettes Per Day: 20.0 Smoked in Last 30 Days: Yes Patient Interested in Nicotine Replacement: Yes Patient Given Instructions on How to Stop Smoking: No Second Hand Smoke Exposure: Yes Use of substances other than those prescribed or required for medical reasons: No Currently Displaying Signs/Symptoms of Drug Intoxication Withdrawal: No Any prior treatment program specific to substance use: No Have you been hit, kicked, punched, or otherwise hurt by someone within the past year? If so, by whom?: No Do you feel safe in your current relationship?: No Current Relationship Is there a partner from a previous relationship who is making you feel unsafe now?: No Are you made to feel afraid or neglected: No Advance Directives: No Advance Directives Information Provided: No Do you have thoughts of harming others: None Do you have a plan to hurt others: No Plan Recently lost weight without trying: No Meds Allergies Allergy/AdvReac Type Severity Reaction Status Date / Time No Known Allergies Allergy Verified 09/24/20 07:32 Home Medications Medication Instructions Recorded Confirmed Type No Known Home Meds 09/24/20 09/24/20 History Physical Exam Vital Signs: Vital Signs: Last Vital Signs Temp 97.7 F 09/25/20 08:00 Pulse 66 09/25/20 08:00 Resp 18 09/25/20 08:00 BP 89/53 L 09/25/20 08:00 Pulse Ox 97 09/25/20 08:00 Body Mass Index 24.0 Const: General: alert HENMT: General nose exam: Abnormal external nose present and Nasal discharge present Eyes: Pupils: Equal, round and reactive pupils present Neck: Neck: Yes normal visual inspection, Yes full ROM and Yes no lymphadenopathy Chest: Chest palpation & inspection: normal inspection of the chest Resp: Auscultation: crackles on the right at the base and diminished lung sounds Cardio: Rate: regular rate Rhythm: regular rhythm Heart sounds: S1 normal heart sound present and S2 normal heart sound present GI: Palpation (GI): Soft to palpation and nontender Auscultation: normal bowel sounds : General: Yes no CVA tenderness Back/Spine/Pelvis: Back: no CVA tenderness Skin: General skin exam: rashes and/or lesions noted Neuro: Cranial nerves: Yes Equal, round and reactive pupils present Results Laboratory Findings CBC and BMP: 09/25/20 05:18 09/25/20 05:18 ABG, PT/INR, D-dimer: PT/INR, D-dimer PT 14.2 SEC (10.8-13.0) H 09/24/20 07:54 INR 1.2 (0.9-1.1) H 09/24/20 07:54 D-Dimer 3170 NG/ML 09/24/20 07:54 Abnormal lab findings: Abnormal Labs 09/24/20 09/24/20 09/24/20 07:53 07:54 07:54 WBC 12.3 H RBC Hgb Hct Immature Gran % (Auto) Neut % (Auto) Lymph % (Auto) Eos % (Auto) Lymph # (Auto) Eos # (Auto) Abs Immat Gran (auto) Absolute Neuts (auto) Band Neutrophils % 26 H Lymphocytes % (Manual) 2 L Eosinophils % (Manual) 5 H Abs Neuts (Manual) 10.9 H Lymphocytes # (Manual) 0.2 L PT 14.2 H INR 1.2 H Chloride Anion Gap BUN Random Glucose Lactic Acid Calcium Ferritin AST ALT Lactate Dehydrogenase Troponin I High Sens 24.7 H C-Reactive Protein B-Natriuretic Peptide 393 H Total Protein Albumin Urine Protein Urine Blood Ur Leukocyte Esterase Urine RBC Urine WBC 09/24/20 09/24/20 09/24/20 07:54 07:54 08:55 WBC RBC Hgb Hct Immature Gran % (Auto) Neut % (Auto) Lymph % (Auto) Eos % (Auto) Lymph # (Auto) Eos # (Auto) Abs Immat Gran (auto) Absolute Neuts (auto) Band Neutrophils % Lymphocytes % (Manual) Eosinophils % (Manual) Abs Neuts (Manual) Lymphocytes # (Manual) PT INR [place] Anion Gap BUN 19 H Random Glucose 142 H Lactic Acid 3.4 H* Calcium Ferritin 361 H AST 117 H ALT 90 H Lactate Dehydrogenase 417 H Troponin I High Sens C-Reactive Protein 18.70 H B-Natriuretic Peptide Total Protein Albumin Urine Protein 2+ H Urine Blood 2+ H Ur Leukocyte Esterase 2+ H Urine RBC 5-9 H Urine WBC 76-150 H 09/25/20 09/25/20 05:18 05:18 WBC 11.3 H RBC 3.85 L D Hgb 11.1 L D Hct 34.3 L D Immature Gran % (Auto) 0.5 H Neut % (Auto) 79.6 H Lymph % (Auto) 8.3 L Eos % (Auto) 5.0 H Lymph # (Auto) 0.9 L Eos # (Auto) 0.6 H Abs Immat Gran (auto) 0.06 H Absolute Neuts (auto) 9.0 H Band Neutrophils % Lymphocytes % (Manual) Eosinophils % (Manual) Abs Neuts (Manual) Lymphocytes # (Manual) PT INR Chloride 111 H Anion Gap 11 L BUN 19 H Random Glucose Lactic Acid Calcium 7.9 L D Ferritin AST ALT 45 H Lactate Dehydrogenase Troponin I High Sens C-Reactive Protein B-Natriuretic Peptide Total Protein 5.2 L D Albumin 3.3 L Urine Protein Urine Blood Ur Leukocyte Esterase Urine RBC Urine WBC Assessment and Plan (1) COPD (chronic obstructive pulmonary disease): Qualifiers: COPD type: emphysema Emphysema type: centrilobular Qualified Code(s): J43.2 - Centrilobular emphysema Status: Acute She does have moderate amount of emphysema likely contributing to the hypoxia. Recommendations: Start Breo Continue respiratory neb treatments in the hospital Continue oxygen therapy Tobacco cessation follow up as an outpatient for close monitoring (2) Pneumonia: Qualifiers: Pneumonia type: due to unspecified organism Laterality: bilateral Lung location: lower lobe of lung Qualified Code(s): J18.9 - Pneumonia, unspecified organism Status: Acute Appears to have consolidations primarily on the right side. Appears to be more consistent with a bacterial process. Her COVID-19 was negative. Although, could still be a postviral bacterial process. Also, we need to follow till resolution of the process specially with her multiple symptoms and significant smoking history the process should resolve after 6-8 weeks. If not additional imaging studies and or diagnostic intervention may be warranted. Recommendations: Continue antibiotic coverage. Will treat for by a days (3) Acute respiratory failure with hypoxia: Status: Acute Continue oxygen supplementation to maintain a pulse ox above 90%. There is a chance the patient may need oxygen upon discharge due to her significant emphysema. No evidence of any thromboembolic disease based on her perfusion study (4) Tobacco dependence: Status: Acute
[2020-09-25] MEDS: 0.9 % Sodium Chloride Flush 3 ML SYRINGE IVFLUSH (10:59)
[2020-09-25] MEDS: cefTRIAXone sodium 1 GM in 0.9 % Sodium Chloride 50 ML IV (11:00)
[2020-09-25] MEDS: Doxycycline Hyclate 100 MG in 0.9 % Sodium Chloride 250 ML 166.76 MG IV ×2 (11:01→22:36)
[2020-09-25] MEDS: Fluticasone/Vilanterol 100/25 BLST.W.DEV 1 PUFF INHALE (11:02)
[2020-09-25] MEDS: Midodrine HCl 5 MG TABLET PO (11:13)
[2020-09-25 12:56] LABS: SARS COV2 IgG Negative (Negative)
--- NOTE | 2020-09-25 14:38 | MHC.PIE ---
P: low bp 89 systolic, manually checked - 86 systolic. Patient asymptomatic, no dizziness. I: Dr Hernandez made aware - midodrine ordered and given. New IV 20g right lower arm, put in r/t fluids not going in to AC IV. E: BP improved to 99 sytolic. HR SR w/ PVC's. Up to bathroom supervised, no dizziness.
--- NOTE | 2020-09-25 15:12 | MHC.CM.PN ---
Pt reports she lives alone and is fully independent with care and mobility. Pt reports she has no in home services and no DME. Pt states she recently completed a HCP with her PCP office. Copy requested. Current DC plan is home with no services family will transport
[2020-09-25] MEDS: 0.9 % Sodium Chloride 1,000 ML 100 ML IVCONT ×2 (17:04→22:36)
--- NOTE | 2020-09-25 17:10 | P.PNIM_ITS ---
Subjective Subjective Date of Service: 09/25/20 Interval History: Patient seen and examined at bedside patient reported cough and shortness of breath Constitutional Constitutional: Denies chills, Denies fever(s), Reports lethargy, Reports malaise, Reports poor appetite and Reports weakness Cardiovascular Cardiovascular: Denies chest pain, Denies palpitations and Reports dyspnea Respiratory Respiratory: Reports cough and Reports dyspnea Gastrointestinal Gastrointestinal: Denies abdominal pain Neurologic Neurologic: Reports weakness Endocrine Endocrine: Denies palpitations Physical Exam Vital Signs: Vital Signs: Last Vital Signs Temp 99.3 F 09/25/20 15:04 Pulse 70 09/25/20 15:04 Resp 18 09/25/20 15:04 BP 104/59 L 09/25/20 15:04 Pulse Ox 97 09/25/20 15:04 Body Mass Index 24.0 Const: Nutritional Appearance: well nourished Orientation/consciousness: patient oriented x3 HENMT: Head: Yes normocephalic and Yes atraumatic Eyes: Sclerae: sclerae normal Chest: Chest palpation & inspection: normal inspection of the chest Resp: Effort & Inspection: normal respiratory effort and no respiratory distress Cardio: Rate: regular rate Rhythm: regular rhythm GI: Palpation (GI): Soft to palpation and nontender Skin: General skin exam: no rashes or lesions noted Neuro: General: patient oriented x3 Cranial nerves: Yes CN's II-XII intact bilaterally and Yes Bilaterally intact EOM present Extrem: General: Yes normal to inspection Objective Data Current Medications Generic Name Dose Route Start Last Admin Trade Name Freq PRN Reason Stop Dose Admin Acetaminophen 650 mg 09/24/20 20:49 Acetaminophen 325 Mg Tablet PO Q6H PRN Pain, Mild (Pain Scale 1-3) Docusate Sodium 100 mg 09/24/20 20:49 Docusate Sodium 100 Mg Capsule PO DAILY PRN Constipation Fluticasone/Vilanterol 1 puff 09/26/20 08:00 09/25/20 11:02 Fluticasone/Vilanterol 100/25 Blst.W.Dev INHALE 1 puff RDAILY ROBERTO Administration Guaifenesin 5 ml 09/25/20 17:08 Guaifenesin 100 Mg/5 Ml Liquid PO Q6H PRN cough Sodium Chloride 1,000 mls @ 100 mls/hr 09/24/20 20:49 09/25/20 17:04 Ns IVCONT 100 mls/hr .Q10H ROBERTO Administration Ceftriaxone Sodium 1 gm/ 50 mls @ 100 mls/hr 09/25/20 08:00 09/25/20 12:22 Sodium Chloride IV Infused Q24H ROBERTO Infusion Doxycycline Hyclate 100 mg/ 250 mls @ 166.67 mls/hr 09/24/20 21:00 09/25/20 12:41 Sodium Chloride IV Infused Q12H ROBERTO Infusion Ondansetron HCl 4 mg 09/24/20 20:49 Ondansetron Hcl 4 Mg/2 Ml Vial IVPUSH Q8H PRN Nausea and Vomiting Pharmacy Consult 1 each 09/24/20 08:56 Consult Rx Perform Med Rec MISCELLANE ONCE PRN Consult order Sodium Chloride 3 ml 09/24/20 20:49 09/25/20 17:04 0.9 % Sodium Chloride Flush 3 Ml Syringe IVFLUSH Not Given QSHIFT [facility] Labs CBC & Chem 7: 09/25/20 05:18 09/25/20 05:18 Microbiology Microbiology Results: Microbiology 09/24/20 08:54 Urine clean catch - Clean Catch Midstream Urine Culture - Final 09/24/20 08:01 Blood - Venous Blood Culture - Preliminary No growth after 24 hours. 09/24/20 07:56 Blood - Venous Blood Culture - Preliminary No growth after 24 hours. Assessment and Plan (1) Acute respiratory failure with hypoxia: Status: Acute (2) Sepsis: Status: Acute Assessment and Plan: this is a 75-year-old female with no significant past medical history who presents with shortness of breath and flu-lik symptoms found have UTI and pneumonia. sepsis secondary to pneumonia continue IV antibiotic follow-up cultures id and pulmonology consult recent exposure to COVID positive patient COVID tested twice and negative COVID antibodies negative acute hypoxic respiratory failure likely secondary to pneumonia and underlying COPD continue oxygen supplementation COPD not in exacerbation continue nebulizer as needed UTI failed outpatient treatment with Macrobid continue IV ceftriaxone follow-up urine culture Acute renal insufficiency no baseline. Unclear chronicity Creatinine 1.21 - IV fluid - monitor function closely transaminitis - follow liver function pulmonary nodules -outpatient follow up DVT prophylaxis- 1 dose of therapeutic Lovenox today. follow up V/Q scan
[2020-09-25] MEDS: guaiFENesin 100 MG/5 ML LIQUID PO (18:03)
--- NOTE | 2020-09-25 21:58 | W.PM.IDCN ---
History of Present Illness Data of Consult Service Date: 09/25/20 Requesting physician: Caden Hernandez Primary Care Provider: Olvin MIRAMONTES Reason for consult: sepsis,pneumonia She presents to hospital with shortness of breath She has symptoms for a day. CXR some diffuse infiltrates She has no fever or chills Review of Systems Constitutional: Constitutional: Reports weakness Neurologic: Reports weakness PMFSH Past Medical History Medical History COPD (chronic obstructive pulmonary disease) Pneumonia Tobacco dependence Tobacco dependence UTI (urinary tract infection) Functional capacity: independent ambulation Family History Family History Father Stroke Surgical History Surgical History No significant past surgical history Social History Social History Household Members: None Housing: Condominium Do you presently have visiting nurse or other home services: No Alcohol intake: never Smoking Status: Current every day smoker Tobacco Type: Cigarette Packs Per Day: 1 Cigarettes Per Day: 20.0 Smoked in Last 30 Days: Yes Patient Interested in Nicotine Replacement: Yes Patient Given Instructions on How to Stop Smoking: No Second Hand Smoke Exposure: Yes Use of substances other than those prescribed or required for medical reasons: No Currently Displaying Signs/Symptoms of Drug Intoxication Withdrawal: No Any prior treatment program specific to substance use: No Have you been hit, kicked, punched, or otherwise hurt by someone within the past year? If so, by whom?: No Do you feel safe in your current relationship?: No Current Relationship Is there a partner from a previous relationship who is making you feel unsafe now?: No Are you made to feel afraid or neglected: No Advance Directives: No Advance Directives Information Provided: No Do you have thoughts of harming others: None Do you have a plan to hurt others: No Plan Recently lost weight without trying: No service: No Current occupational status: retired Meds Allergies Allergy/AdvReac Type Severity Reaction Status Date / Time No Known Allergies Allergy Verified 09/24/20 07:32 Home Medications Medication Instructions Recorded Confirmed Type No Known Home Meds 09/24/20 09/24/20 History Physical Exam Vital Signs: Vital Signs: Last Vital Signs Temp 98.1 F 09/25/20 19:10 Pulse 60 09/25/20 19:10 Resp 18 09/25/20 15:04 BP 101/57 L 09/25/20 19:10 Pulse Ox 97 09/25/20 19:10 Body Mass Index 24.0 Const: General: cooperative HENMT: Head: Yes normal to inspection Face and sinus: Yes normal transillumination of sinuses Eyes: General: appearance normal, both eyes and all related structures Resp: Effort & Inspection: normal respiratory effort Cardio: Rate: regular rate Rhythm: regular rhythm GI: Inspection: Yes normal to inspection Auscultation: Hypoactive bowel sounds present : General: Yes no CVA tenderness Back/Spine/Pelvis: Back: no CVA tenderness Extrem: General: Yes normal to inspection Assessment and Plan (1) Pneumonia: Qualifiers: Pneumonia type: due to unspecified organism Laterality: bilateral Lung location: lower lobe of lung Qualified Code(s): J18.9 - Pneumonia, unspecified organism Status: Acute (2) COPD (chronic obstructive pulmonary disease): Qualifiers: COPD type: emphysema Emphysema type: centrilobular Qualified Code(s): J43.2 - Centrilobular emphysema Problem details: Still some lung congestion Status: Acute Finish antibiotics,ER recurs Results Labs CBC & Chem 7: 09/25/20 05:18 09/25/20 05:18 Labs: Short CBC 09/25/20 Range/Units 05:18 WBC 11.3 H (4.8-10.8) X10*3/uL Hgb 11.1 L D (12.0-16.0) g/dl Hct 34.3 L D (37-47) % Plt Count 197 (160-400) X10*3/uL BMP 09/25/20 05:18 Sodium 140 Potassium 4.0 Chloride 111 H Carbon Dioxide 22 BUN 19 H Creatinine 0.70 Calcium 7.9 L D Liver Function 09/25/20 Range/Units 05:18 Total Bilirubin 0.7 (0.0-1.0) mg/dL Direct Bilirubin 0.3 (0.0-0.5) mg/dL AST 29 D (5-31) U/L ALT 45 H (0-31) U/L Alkaline Phosphatase 67 D (39-117) U/L Albumin 3.3 L (3.5-5.0) g/dL Microbiology Microbiology Results: Microbiology 09/24/20 08:54 Urine clean catch - Clean Catch Midstream Urine Culture - Final 09/24/20 08:01 Blood - Venous Blood Culture - Preliminary No growth after 24 hours. 09/24/20 07:56 Blood - Venous Blood Culture - Preliminary No growth after 24 hours.
[2020-09-26] VITALS (8 sets, daily range): BP systolic 94–119; BP diastolic 46–77; PULSE 57–105; RESP 14–18; TEMP 36.5–37.3; O2SAT 91–98
[2020-09-26] MEDS: cefTRIAXone sodium 1 GM in 0.9 % Sodium Chloride 50 ML IV (09:39)
[2020-09-26] MEDS: predniSONE 20 MG TABLET 40 MG PO (09:40)
[2020-09-26] MEDS: 0.9 % Sodium Chloride 1,000 ML 100 ML IVCONT ×2 (09:43→21:35)
[2020-09-26] MEDS: Doxycycline Hyclate 100 MG in 0.9 % Sodium Chloride 250 ML 166.76 MG IV ×2 (11:00→20:37)
--- NOTE | 2020-09-26 14:39 | P.PNIM_ITS ---
Subjective Subjective Date of Service: 09/26/20 Interval History: Patient seen and examined at bedside patient reported cough and shortness of breath improving Constitutional Constitutional: Denies chills, Denies fever(s), Reports lethargy, Reports malaise, Reports poor appetite and Reports weakness Cardiovascular Cardiovascular: Denies chest pain, Denies palpitations and Reports dyspnea Respiratory Respiratory: Reports cough and Reports dyspnea Gastrointestinal Gastrointestinal: Denies abdominal pain Neurologic Neurologic: Reports weakness Endocrine Endocrine: Denies palpitations Physical Exam Vital Signs: Vital Signs: Last Vital Signs Temp 98.3 F 09/26/20 11:18 Pulse 64 09/26/20 11:18 Resp 18 09/26/20 11:18 BP 101/60 09/26/20 11:18 Pulse Ox 98 09/26/20 11:18 Body Mass Index 24.0 Const: Nutritional Appearance: well nourished Orientation/consciousness: patient oriented x3 HENMT: Head: Yes normocephalic and Yes atraumatic Eyes: Sclerae: sclerae normal Chest: Chest palpation & inspection: normal inspection of the chest Resp: Effort & Inspection: normal respiratory effort and no respiratory distress Cardio: Rate: regular rate Rhythm: regular rhythm GI: Palpation (GI): Soft to palpation and nontender Skin: General skin exam: no rashes or lesions noted Neuro: General: patient oriented x3 Cranial nerves: Yes CN's II-XII intact bilaterally and Yes Bilaterally intact EOM present Extrem: General: Yes normal to inspection Objective Data Current Medications Generic Name Dose Route Start Last Admin Trade Name Freq PRN Reason Stop Dose Admin Acetaminophen 650 mg 09/24/20 20:49 Acetaminophen 325 Mg Tablet PO Q6H PRN Pain, Mild (Pain Scale 1-3) Docusate Sodium 100 mg 09/24/20 20:49 Docusate Sodium 100 Mg Capsule PO DAILY PRN Constipation Fluticasone/Vilanterol 1 puff 09/26/20 08:00 09/25/20 11:02 Fluticasone/Vilanterol 100/25 Blst.W.Dev INHALE 1 puff RDAILY ROBERTO Administration Guaifenesin 5 ml 09/25/20 17:08 09/25/20 18:03 Guaifenesin 100 Mg/5 Ml Liquid PO 5 ml Q6H PRN Administration cough Sodium Chloride 1,000 mls @ 100 mls/hr 09/24/20 20:49 09/26/20 09:43 Ns IVCONT 100 mls/hr .Q10H ROBERTO Administration Ceftriaxone Sodium 1 gm/ 50 mls @ 100 mls/hr 09/25/20 08:00 09/26/20 10:27 Sodium Chloride IV Infused Q24H ROBERTO Infusion Doxycycline Hyclate 100 mg/ 250 mls @ 166.67 mls/hr 09/24/20 21:00 09/26/20 12:32 Sodium Chloride IV Infused Q12H ROBERTO Infusion Ondansetron HCl 4 mg 09/24/20 20:49 Ondansetron Hcl 4 Mg/2 Ml Vial IVPUSH Q8H PRN Nausea and Vomiting Pharmacy Consult 1 each 09/24/20 08:56 Consult Rx Perform Med Rec MISCELLANE ONCE PRN Consult order Prednisone 40 mg 09/26/20 09:00 09/26/20 09:40 Prednisone 20 Mg Tablet PO 40 mg DAILY ROBERTO Administration Sodium Chloride 3 ml 09/24/20 20:49 09/26/20 09:39 0.9 % Sodium Chloride Flush 3 Ml Syringe IVFLUSH Not Given QSHIFT [facility] Labs CBC & Chem 7: 09/25/20 05:18 09/25/20 05:18 Microbiology Microbiology Results: Microbiology 09/24/20 08:01 Blood - Venous Blood Culture - Preliminary No growth after 48 hours. 09/24/20 07:56 Blood - Venous Blood Culture - Preliminary No growth after 48 hours. 09/24/20 08:54 Urine clean catch - Clean Catch Midstream Urine Culture - Final Assessment and Plan (1) Acute respiratory failure with hypoxia: Status: Acute (2) Sepsis: Status: Acute Assessment and Plan: this is a 75-year-old female with no significant past medical history who presents with shortness of breath and flu-lik symptoms found have UTI and pneumonia. sepsis secondary to pneumonia improving continue IV antibiotic follow-up cultures id and pulmonology consulted recommended continue antibiotic recent exposure to COVID positive patient COVID tested twice and negative COVID antibodies negative acute hypoxic respiratory failure likely secondary to pneumonia and underlying COPD continue oxygen supplementation still on 2 L of oxygen weaned down as tolerated COPD not in exacerbation continue nebulizer as needed elevated D-dimer V/Q scan negative UTI failed outpatient treatment with Macrobid continue IV ceftriaxone urine culture growing mixed organism Acute renal insufficiency no baseline. Unclear chronicity Creatinine 1.21 - IV fluid - monitor function closely transaminitis - follow liver function pulmonary nodules -outpatient follow up DVT prophylaxis- Lovenox
[2020-09-26] MEDS: guaiFENesin 100 MG/5 ML LIQUID PO (16:36)
[2020-09-26] MEDS: Enoxaparin Sodium 40 MG/0.4 ML SYRINGE SUBCUT (16:37)
[2020-09-26] MEDS: 0.9 % Sodium Chloride Flush 3 ML SYRINGE IVFLUSH (20:43)
--- NOTE | 2020-09-27 | ECG_ITS ---
Test Reason : bradycardia Blood Pressure : / mmHG Vent. Rate : 076 BPM Atrial Rate : 076 BPM P-R Int : 148 ms QRS Dur : 064 ms QT Int : 386 ms P-R-T Axes : 073 066 017 degrees QTc Int : 434 ms Sinus rhythm with frequent Premature ventricular complexes Low voltage QRS Borderline ECG When compared with ECG of 24-SEP-2020 08:35, No significant change was found Referred By: Salvador Donovan Electronically Signed By:CECILLE COLINDRES
--- NOTE | 2020-09-27 00:25 | PM.EVENT ---
Event Note Date of Service: 09/27/20 Event Note: Pt bradycardic to the 30s while asleep. asymptomatic. gave 0.5mg of atropine one time dose.
[2020-09-27] MEDS: guaiFENesin 100 MG/5 ML LIQUID PO (00:45)
[2020-09-27 02:21] LABS: Anion Gap 15 (12-20); Blood Urea Nitrogen 13 mg/dL (9-16); Calcium 7.8 mg/dL (8.4-10.2); Carbon Dioxide 19 mmol/L (22-29); Chloride 110 mmol/L (96-108); Creatinine Clr Calc Pharmacy 64.5; Estimated Glomerular Filt Rate > 60; Glucose Random 97 mg/dL (60-115); Magnesium 2.1 mg/dL (1.6-2.6); Potassium 4.8 mmol/l (3.3-5.1); Sodium 139 mmol/L (135-145)
--- NOTE | 2020-09-27 03:26 | PC.NURSE ---
Pt noted to be bradycardic, HR sustaining in the 40's dipping as low as 35. Pt A&Ox4 and states just feeling tired. All other VSS. MD made aware and 0.5mg IV Atropine ordered and administered. Effective immediately, HR sustaining 70-90's but with more frequent PVC's. MD made aware. EKG ordered and obtained showing NSR with frequent PVC's. Mag and K ordered and both WNL. Pt educated on alarming nurse for any change in signs or symptoms. Will continue to monitor.
[2020-09-27 03:43] VITALS: BP 107/62; PULSE 79; RESP 18; TEMP 37.2; O2SAT 93
[2020-09-27 06:21] LABS: MANUAL DIFF FLAG NO
[2020-09-27 06:54] LABS: Basophils Percent Auto 0.2 % (0-2); Eosinophils Absolute Auto 0.5 X10*3/uL (0.0-0.4); Eosinophils Percent Auto 5.7 % (0-4); Hematocrit 31.4 % (37-47); Hemoglobin 10.2 g/dl (12.0-16.0); Imm Gran Abs Auto 0.04 X10*3/uL (0.00-0.03); Imm Gran Pct Auto 0.5 % (0.0-0.4); Lymphocytes Absolute Auto 2.5 X10*3/uL (1.2-4.9); Lymphocytes Percent Auto 28.8 % (20-40); Mean Corpuscular HGB Conc 32.5 g/dl (31.0-35.0); Mean Corpuscular Hemoglobin 29.1 pg (27.0-33.0); Mean Corpuscular Volume 89.7 fL (80-98); Mean Platelet Volume 10.7 fL (9.4-12.3); Monocytes Absolute Auto 0.9 X10*3/uL (0.1-1.2); Monocytes Percent Auto 10.9 % (2-11); Neutrophils Absolute Auto 4.6 X10*3/uL (2.0-8.3); Neutrophils Percent Auto 53.9 % (45-73); Platelet Count 203 X10*3/uL (160-400); Red Cell Distribution Width 14.2 % (11.0-16.0); White Blood Count 8.6 X10*3/uL (4.8-10.8)
[2020-09-27 06:57] LABS: Anion Gap 13 (12-20); Blood Urea Nitrogen 12 mg/dL (9-16); Calcium 8.1 mg/dL (8.4-10.2); Carbon Dioxide 22 mmol/L (22-29); Chloride 111 mmol/L (96-108); Creatinine Clr Calc Pharmacy 68.6; Estimated Glomerular Filt Rate > 60; Glucose Random 87 mg/dL (60-115); Potassium 4.2 mmol/l (3.3-5.1); Sodium 142 mmol/L (135-145)
[2020-09-27 08:00] VITALS: BP 90/51; PULSE 83; RESP 19; TEMP 36.9; O2SAT 94
[2020-09-27] MEDS: predniSONE 20 MG TABLET 40 MG PO (08:53)
[2020-09-27] MEDS: cefTRIAXone sodium 1 GM in 0.9 % Sodium Chloride 50 ML IV (08:53)
[2020-09-27] MEDS: 0.9 % Sodium Chloride 1,000 ML 100 ML IVCONT (08:57)
[2020-09-27 09:19] LABS: C Reactive Protein 10.49 mg/dL (< or = 0.50)
[2020-09-27] MEDS: Doxycycline Hyclate 100 MG in 0.9 % Sodium Chloride 250 ML 166.76 MG IV ×2 (09:32→19:36)
[2020-09-27 09:34] LABS: Procalcitonin 0.14 ng/mL
[2020-09-27 09:41] LABS: Ferritin 451 ng/mL (10-250)
[2020-09-27 12:00] VITALS: PULSE 62; RESP 18
[2020-09-27] MEDS: Nicotine 14 MG PATCH.TD24 TRANSDERMA (12:14)
--- NOTE | 2020-09-27 14:46 | HO.PM.IMPN ---
Subjective Subjective Date of Service: 09/28/20 Interval History: Breathing improved. Qualified for home O2 1L with ambulation Today's COVID NAAT negative. Physical Exam Vital Signs: Vital Signs: Last Vital Signs Temp 98.5 F 09/27/20 08:00 Pulse 83 09/27/20 08:00 Resp 19 09/27/20 08:00 BP 90/51 L 09/27/20 08:00 Pulse Ox 94 09/27/20 08:00 Body Mass Index 24.0 Gen: in no acute distress HEENT: sclera anicteric, moist mucus membranes Neck: supple Lungs: no respiratory distress, lungs sounds diminished at bases bilaterally Heart: normal peripheral pulses Abd: soft, non-tender, non-distended Ext: no cyanosis, clubbing, or edema Skin: warm/well-perfused Neuro: alert and oriented x3, no focal findings Psych: appropriate affect Objective Data Current Medications Generic Name Dose Route Start Last Admin Trade Name Freq PRN Reason Stop Dose Admin Acetaminophen 650 mg 09/24/20 20:49 Acetaminophen 325 Mg Tablet PO Q6H PRN Pain, Mild (Pain Scale 1-3) Docusate Sodium 100 mg 09/24/20 20:49 Docusate Sodium 100 Mg Capsule PO DAILY PRN Constipation Enoxaparin Sodium 40 mg 09/26/20 15:00 09/26/20 16:37 Enoxaparin Sodium 40 Mg/0.4 Ml Syringe SUBCUT 40 mg Q24H ROBERTO Administration Fluticasone/Vilanterol 1 puff 09/26/20 08:00 09/27/20 07:46 Fluticasone/Vilanterol 100/25 Blst.W.Dev INHALE Not Given RDAILY ROBERTO Guaifenesin 5 ml 09/25/20 17:08 09/27/20 00:45 Guaifenesin 100 Mg/5 Ml Liquid PO 5 ml Q6H PRN Administration cough Ceftriaxone Sodium 1 gm/ 50 mls @ 100 mls/hr 09/25/20 08:00 09/27/20 09:36 Sodium Chloride IV Infused Q24H ROBERTO Infusion Doxycycline Hyclate 100 mg/ 250 mls @ 166.67 mls/hr 09/24/20 21:00 09/27/20 12:04 Sodium Chloride IV Infused Q12H ROBERTO Infusion Melatonin 3 mg 09/27/20 21:00 Melatonin 3 Mg Tablet PO BEDTIME ROBERTO Nicotine 14 mg 09/27/20 11:30 09/27/20 12:14 Nicotine 14 Mg Patch.Td24 TRANSDERMA 14 mg DAILY ROBERTO Administration Ondansetron HCl 4 mg 09/24/20 20:49 Ondansetron Hcl 4 Mg/2 Ml Vial IVPUSH Q8H PRN Nausea and Vomiting Pharmacy Consult 1 each 09/24/20 08:56 Consult Rx Perform Med Rec MISCELLANE ONCE PRN Consult order Prednisone 40 mg 09/26/20 09:00 09/27/20 08:53 Prednisone 20 Mg Tablet PO 40 mg DAILY ROBERTO Administration Sodium Chloride 3 ml 09/24/20 20:49 09/27/20 08:53 0.9 % Sodium Chloride Flush 3 Ml Syringe IVFLUSH Not Given QSHIFT [facility] Labs CBC & Chem 7: 09/28/20 05:19 09/28/20 05:23 Labs: Laboratory Results - last 24 hr 09/28/20 09/28/20 09/28/20 05:19 05:23 05:23 WBC 9.6 RBC 3.58 L Hgb 10.6 L Hct 31.8 L MCV 88.8 MCH 29.6 MCHC 33.3 RDW 13.8 Plt Count 243 MPV 10.6 Immature Gran % (Auto) 1.5 H Neut % (Auto) 49.2 Lymph % (Auto) 31.8 Arroyo % (Auto) 12.8 H Eos % (Auto) 4.3 H Baso % (Auto) 0.4 Lymph # (Auto) 3.1 Arroyo # (Auto) 1.2 Eos # (Auto) 0.4 Baso # (Auto) 0.0 Abs Immat Gran (auto) 0.14 H Absolute Neuts (auto) 4.8 Absolute Nucleated RBC 0.000 Nucleated RBC % (auto) 0.0 D-Dimer 892 Sodium 142 Potassium 4.0 Chloride 109 H Carbon Dioxide 25 Anion Gap 12 BUN 13 Creatinine 0.62 Estim Creat Clear Calc 69.7 Estimated GFR > 60 Random Glucose 86 Calcium 8.1 L Total Bilirubin 0.7 AST 38 H ALT 89 H Alkaline Phosphatase 163 H D Lactate Dehydrogenase Total Protein 5.0 L Albumin 3.0 L SARS-CoV-2 (PCR) COVID-19 ([facility]) COVID-19 Clin Com 09/28/20 09/28/20 09/28/20 05:23 08:03 12:49 WBC RBC Hgb Hct MCV MCH MCHC RDW Plt Count MPV Immature Gran % (Auto) Neut % (Auto) Lymph % (Auto) Arroyo % (Auto) Eos % (Auto) Baso % (Auto) Lymph # (Auto) Arroyo # (Auto) Eos # (Auto) Baso # (Auto) Abs Immat Gran (auto) Absolute Neuts (auto) Absolute Nucleated RBC Nucleated RBC % (auto) D-Dimer Sodium Potassium Chloride Carbon Dioxide Anion Gap BUN Creatinine Estim Creat Clear Calc Estimated GFR Random Glucose Calcium Total Bilirubin AST ALT Alkaline Phosphatase Lactate Dehydrogenase 211 Total Protein Albumin SARS-CoV-2 (PCR) Cancelled COVID-19 ([facility]) Negative COVID-19 Clin Com See Note Microbiology Microbiology Results: Microbiology 09/24/20 08:01 Blood - Venous Blood Culture - Preliminary No growth after 48 hours. 09/24/20 07:56 Blood - Venous Blood Culture - Preliminary No growth after 48 hours. 09/24/20 08:54 Urine clean catch - Clean Catch Midstream Urine Culture - Final Assessment and Plan (1) Acute respiratory failure with hypoxia: Status: Acute (2) Sepsis: Status: Acute Assessment and Plan: 75yo F smoker presenting with DIANA and dyspnea, admitted for hypoxia and pneumonia # sepsis secondary to pneumonia - thought to be bacterial; BCx negative; remains on doxycycline + ceftriaxone d#01/27 - negative for SARS-CoV2 09/24/20 and again 09/28/20 (last contact with positive case 09/19/20) - inflammatory markers improved # elevated D-dimer - V/Q low-probability; likely inflammatory in nature # acute hypoxic respiratory failure - wean O2 as tolerated, d/c home on O2 # sinus bradycardia - does not appear inappropriate, continue to monitor # newly diagnosed COPD with acute exacerbation - prednisone burst d#12/25, started on LABA/ICS, will need pulm f/u # possible UTI - UCx mixed, on ceftriaxone for PNA regardless # NAZARIO - resolved after IV fluids # transaminasemia - likely due to sepsis but check HBV/HCV # pulmonary nodules - outpt CT chest in 3 mo # tobacco abuse - NRT # dispo - [facility], possibly tomorrow
--- NOTE | 2020-09-27 15:09 | HO.PM.IMPN ---
Subjective Subjective Date of Service: 09/27/20 Interval History: Cough and dyspnea improving I spoke by phone with pt's daughter who tested positive for COVID and she was in close contact with her mother, though masked. Pt does smoke 1 ppd and would like NRT. No fever or chills. No anosmia or dysgeusia. Overnight was bradycardic to 30s while sleeping and got 1-time dose of atropine. Pt states her HR runs low chronically and she denies any dizziness. Physical Exam Vital Signs: Vital Signs: Last Vital Signs Temp 98.5 F 09/27/20 08:00 Pulse 62 09/27/20 12:00 Resp 18 09/27/20 12:00 BP 90/51 L 09/27/20 08:00 Pulse Ox 94 09/27/20 08:00 Body Mass Index 24.0 Gen: in no acute distress HEENT: sclera anicteric, moist mucus membranes Neck: supple Lungs: no respiratory distress, auscultation deferred due to COVID-19 Heart: normal peripheral pulses Abd: soft, non-tender, non-distended Ext: no cyanosis, clubbing, or edema Skin: warm/well-perfused Neuro: alert and oriented x3, no focal findings Psych: appropriate affect Objective Data Current Medications Generic Name Dose Route Start Last Admin Trade Name Freq PRN Reason Stop Dose Admin Acetaminophen 650 mg 09/24/20 20:49 Acetaminophen 325 Mg Tablet PO Q6H PRN Pain, Mild (Pain Scale 1-3) Docusate Sodium 100 mg 09/24/20 20:49 Docusate Sodium 100 Mg Capsule PO DAILY PRN Constipation Enoxaparin Sodium 40 mg 09/26/20 15:00 09/26/20 16:37 Enoxaparin Sodium 40 Mg/0.4 Ml Syringe SUBCUT 40 mg Q24H ROBERTO Administration Fluticasone/Vilanterol 1 puff 09/26/20 08:00 09/27/20 07:46 Fluticasone/Vilanterol 100/25 Blst.W.Dev INHALE Not Given RDAILY ROBERTO Guaifenesin 5 ml 09/25/20 17:08 09/27/20 00:45 Guaifenesin 100 Mg/5 Ml Liquid PO 5 ml Q6H PRN Administration cough Ceftriaxone Sodium 1 gm/ 50 mls @ 100 mls/hr 09/25/20 08:00 09/27/20 09:36 Sodium Chloride IV Infused Q24H ROBERTO Infusion Doxycycline Hyclate 100 mg/ 250 mls @ 166.67 mls/hr 09/24/20 21:00 09/27/20 12:04 Sodium Chloride IV Infused Q12H ROBERTO Infusion Melatonin 3 mg 09/27/20 21:00 Melatonin 3 Mg Tablet PO BEDTIME ROBERTO Nicotine 14 mg 09/27/20 11:30 09/27/20 12:14 Nicotine 14 Mg Patch.Td24 TRANSDERMA 14 mg DAILY ROBERTO Administration Ondansetron HCl 4 mg 09/24/20 20:49 Ondansetron Hcl 4 Mg/2 Ml Vial IVPUSH Q8H PRN Nausea and Vomiting Pharmacy Consult 1 each 09/24/20 08:56 Consult Rx Perform Med Rec MISCELLANE ONCE PRN Consult order Prednisone 40 mg 09/26/20 09:00 09/27/20 08:53 Prednisone 20 Mg Tablet PO 40 mg DAILY ROBERTO Administration Sodium Chloride 3 ml 09/24/20 20:49 09/27/20 08:53 0.9 % Sodium Chloride Flush 3 Ml Syringe IVFLUSH Not Given QSHIFT [facility] Labs CBC & Chem 7: 09/27/20 05:51 09/27/20 05:51 Labs: Laboratory Results - last 24 hr 09/27/20 09/27/20 09/27/20 01:30 05:51 05:51 WBC 8.6 RBC 3.50 L Hgb 10.2 L Hct 31.4 L MCV 89.7 MCH 29.1 MCHC 32.5 RDW 14.2 Plt Count 203 MPV 10.7 Immature Gran % (Auto) 0.5 H Neut % (Auto) 53.9 Lymph % (Auto) 28.8 [place] % (Auto) 10.9 Eos % (Auto) 5.7 H Baso % (Auto) 0.2 Lymph # (Auto) 2.5 [place] # (Auto) 0.9 Eos # (Auto) 0.5 H Baso # (Auto) 0.0 Abs Immat Gran (auto) 0.04 H Absolute Neuts (auto) 4.6 Absolute Nucleated RBC 0.000 Nucleated RBC % (auto) 0.0 Sodium 139 142 Potassium 4.8 4.2 Chloride 110 H 111 H Carbon Dioxide 19 L 22 Anion Gap 15 13 BUN 13 12 Creatinine 0.67 0.63 Estim Creat Clear Calc 64.5 68.6 Estimated GFR > 60 > 60 Random Glucose 97 87 Calcium 7.8 L 8.1 L Magnesium 2.1 Ferritin 451 H C-Reactive Protein 10.49 H Procalcitonin 09/27/20 05:51 WBC RBC Hgb Hct MCV MCH MCHC RDW Plt Count MPV Immature Gran % (Auto) Neut % (Auto) Lymph % (Auto) [place] % (Auto) Eos % (Auto) Baso % (Auto) Lymph # (Auto) [place] # (Auto) Eos # (Auto) Baso # (Auto) Abs Immat Gran (auto) Absolute Neuts (auto) Absolute Nucleated RBC Nucleated RBC % (auto) Sodium Potassium Chloride Carbon Dioxide Anion Gap BUN Creatinine Estim Creat Clear Calc Estimated GFR Random Glucose Calcium Magnesium Ferritin C-Reactive Protein Procalcitonin 0.14 Microbiology Microbiology Results: Microbiology 09/24/20 08:01 Blood - Venous Blood Culture - Preliminary No growth after 48 hours. 09/24/20 07:56 Blood - Venous Blood Culture - Preliminary No growth after 48 hours. 09/24/20 08:54 Urine clean catch - Clean Catch Midstream Urine Culture - Final Assessment and Plan (1) Acute respiratory failure with hypoxia: Status: Acute (2) Sepsis: Status: Acute Assessment and Plan: 75yo F smoker presenting with DIANA and dyspnea, admitted for hypoxia and pneumonia # sepsis secondary to pneumonia - thought to be bacterial; BCx negative; remains on doxycycline + ceftriaxone d#3 - tested negative for SARS-CoV2 twice on 09/24/20 but out of an abundance of caution will repeat the PCR tomorrow; last contact with the index case was on 09/19/20 - recheck inflammatory markers in the am # elevated D-dimer - V/Q low-probability; likely inflammatory in nature # acute hypoxic respiratory failure - wean O2 as tolerated, currently on 1.5L by [place] # sinus bradycardia - does not appear inappropriate, will monitor for now # newly diagnosed COPD with acute exacerbation - prednisone burst d#2/5, started on LABA/ICS, will need pulm f/u # possible UTI - UCx mixed, on ceftriaxone for PNA regardless # NAZARIO - resolved after IV fluids # transaminasemia - repeat LFTs in am, likely due to sepsis # pulmonary nodules - outpt CT chest in 3 mo # tobacco abuse - NRT # dispo - [facility] when off O2
[2020-09-27 15:26] VITALS: BP 112/70; PULSE 67; RESP 19; TEMP 36; O2SAT 93
[2020-09-27] MEDS: Enoxaparin Sodium 40 MG/0.4 ML SYRINGE SUBCUT (16:40)
[2020-09-27] MEDS: 0.9 % Sodium Chloride Flush 3 ML SYRINGE IVFLUSH ×2 (16:41→23:04)
[2020-09-27 19:06] VITALS: BP 100/63; PULSE 56; RESP 19; TEMP 36.6; O2SAT 94
[2020-09-27] MEDS: Melatonin 3 MG TABLET PO (19:38)
[2020-09-27 23:13] VITALS: BP 100/50; PULSE 59; RESP 16; TEMP 36.1; O2SAT 96
[2020-09-28] VITALS (8 sets, daily range): BP systolic 107–121; BP diastolic 55–72; PULSE 51–92; RESP 18; TEMP 36.2–36.6; O2SAT 87–98
--- NOTE | 2020-09-28 01:16 | MHC.PIE ---
p; p 35-48. note; pt has hx bradycardia overnight 09/27/20 i; dr sahu notified e; will cont to monitor
[2020-09-28 05:59] LABS: MANUAL DIFF FLAG NO
[2020-09-28 06:03] LABS: Basophils Percent Auto 0.4 % (0-2); Eosinophils Absolute Auto 0.4 X10*3/uL (0.0-0.4); Eosinophils Percent Auto 4.3 % (0-4); Hematocrit 31.8 % (37-47); Hemoglobin 10.6 g/dl (12.0-16.0); Imm Gran Abs Auto 0.14 X10*3/uL (0.00-0.03); Imm Gran Pct Auto 1.5 % (0.0-0.4); Lymphocytes Absolute Auto 3.1 X10*3/uL (1.2-4.9); Lymphocytes Percent Auto 31.8 % (20-40); Mean Corpuscular HGB Conc 33.3 g/dl (31.0-35.0); Mean Corpuscular Hemoglobin 29.6 pg (27.0-33.0); Mean Corpuscular Volume 88.8 fL (80-98); Mean Platelet Volume 10.6 fL (9.4-12.3); Monocytes Absolute Auto 1.2 X10*3/uL (0.1-1.2); Monocytes Percent Auto 12.8 % (2-11); Neutrophils Absolute Auto 4.8 X10*3/uL (2.0-8.3); Neutrophils Percent Auto 49.2 % (45-73); Platelet Count 243 X10*3/uL (160-400); Red Blood Count 3.58 X10*6/uL (4.20-5.50); Red Cell Distribution Width 13.8 % (11.0-16.0); White Blood Count 9.6 X10*3/uL (4.8-10.8)
[2020-09-28 06:10] LABS: D Dimer 892 NG/ML
[2020-09-28 06:34] LABS: Lactate Dehydrogenase 211 U/L (122-220)
[2020-09-28 06:38] LABS: Alanine Aminotransferase 89 U/L (0-31); Alkaline Phosphatase 163 U/L (39-117); Anion Gap 12 (12-20); Aspartate Amino Transferase 38 U/L (5-31); Bilirubin Total 0.7 mg/dL (0.0-1.0); Blood Urea Nitrogen 13 mg/dL (9-16); Calcium 8.1 mg/dL (8.4-10.2); Carbon Dioxide 25 mmol/L (22-29); Chloride 109 mmol/L (96-108); Creatinine Clr Calc Pharmacy 69.7; Estimated Glomerular Filt Rate > 60; Glucose Random 86 mg/dL (60-115); Sodium 142 mmol/L (135-145)
[2020-09-28] MEDS: cefTRIAXone sodium 1 GM in 0.9 % Sodium Chloride 50 ML IV (07:54)
[2020-09-28] MEDS: 0.9 % Sodium Chloride Flush 3 ML SYRINGE IVFLUSH ×3 (07:54→21:08)
[2020-09-28] MEDS: Nicotine 14 MG PATCH.TD24 TRANSDERMA (09:58)
[2020-09-28] MEDS: predniSONE 20 MG TABLET 40 MG PO (09:58)
[2020-09-28] MEDS: Doxycycline Hyclate 100 MG in 0.9 % Sodium Chloride 250 ML 166.76 MG IV ×2 (09:58→21:07)
--- NOTE | 2020-09-28 12:05 | MHC.CM.PN ---
Patient is on IV Ceftriaxone and IV Doxycycline for UTI. Patient will need home o2 eval prior to discharge, has been weaned to room air. Discharge plan is home no services, family will provide transport. CM will continue to follow for discharge needs.
[2020-09-28 13:10] LABS: COVID-19 Test Negative (Negative); IDNOW Serial# 9DD0AD1C
[2020-09-28] MEDS: Enoxaparin Sodium 40 MG/0.4 ML SYRINGE SUBCUT (16:10)
[2020-09-28] MEDS: Melatonin 3 MG TABLET PO (21:08)
[2020-09-29 03:47] VITALS: BP 117/68; PULSE 55; RESP 18; TEMP 36; O2SAT 93
[2020-09-29 06:30] LABS: MANUAL DIFF FLAG NO
[2020-09-29 06:42] LABS: Basophils Absolute Auto 0.1 X10*3/uL (0.0-0.2); Basophils Percent Auto 0.5 % (0-2); Eosinophils Absolute Auto 0.3 X10*3/uL (0.0-0.4); Eosinophils Percent Auto 2.8 % (0-4); Hematocrit 32.5 % (37-47); Hemoglobin 10.8 g/dl (12.0-16.0); Imm Gran Abs Auto 0.35 X10*3/uL (0.00-0.03); Imm Gran Pct Auto 3.3 % (0.0-0.4); Lymphocytes Absolute Auto 3.5 X10*3/uL (1.2-4.9); Lymphocytes Percent Auto 32.4 % (20-40); Mean Corpuscular HGB Conc 33.2 g/dl (31.0-35.0); Mean Corpuscular Hemoglobin 29.3 pg (27.0-33.0); Mean Corpuscular Volume 88.3 fL (80-98); Mean Platelet Volume 10.5 fL (9.4-12.3); Monocytes Absolute Auto 1.2 X10*3/uL (0.1-1.2); Monocytes Percent Auto 11.4 % (2-11); Neutrophils Absolute Auto 5.3 X10*3/uL (2.0-8.3); Neutrophils Percent Auto 49.6 % (45-73); Platelet Count 288 X10*3/uL (160-400); Red Blood Count 3.68 X10*6/uL (4.20-5.50); Red Cell Distribution Width 13.9 % (11.0-16.0); White Blood Count 10.7 X10*3/uL (4.8-10.8)
[2020-09-29] MEDS: Fluticasone/Vilanterol 100/25 BLST.W.DEV 1 PUFF INHALE (07:22)
[2020-09-29 07:23] LABS: Alanine Aminotransferase 74 U/L (0-31); Albumin Level 3.1 g/dL (3.5-5.0); Alkaline Phosphatase 151 U/L (39-117); Aspartate Amino Transferase 22 U/L (5-31); Bilirubin Direct 0.2 mg/dL (0.0-0.5); Bilirubin Total 0.4 mg/dL (0.0-1.0); Total Protein 4.9 g/dL (6.5-8.0)
[2020-09-29] MEDS: predniSONE 20 MG TABLET 40 MG PO (07:37)
[2020-09-29] MEDS: Nicotine 14 MG PATCH.TD24 TRANSDERMA (07:38)
[2020-09-29] MEDS: cefTRIAXone sodium 1 GM in 0.9 % Sodium Chloride 50 ML IV (07:38)
[2020-09-29] MEDS: 0.9 % Sodium Chloride Flush 3 ML SYRINGE IVFLUSH (07:39)
[2020-09-29 08:00] VITALS: BP 118/66; PULSE 58; RESP 18; TEMP 36.5; O2SAT 90
[2020-09-29] MEDS: Doxycycline Hyclate 100 MG in 0.9 % Sodium Chloride 250 ML 166.76 MG IV (09:57)
[2020-09-29 10:47] VITALS: BP 118/66; PULSE 58; O2SAT 90
[2020-09-29 12:00] VITALS: BP 105/67; PULSE 79; RESP 18; TEMP 36.7; O2SAT 92
[2020-09-29 15:28] VITALS: BP 119/67; PULSE 65; RESP 18; TEMP 36.1; O2SAT 91
--- NOTE | 2020-09-29 15:32 | PM.DS ---
DS: Providers Provider Date of admission: 09/24/20 15:25 Primary care physician: Olvin Gorman Consults: 09/24/20 15:25 Consult to Infectious Diseases Routine Consulting Provider: Jen Shelton Reason for consultation: sepsis, pna; concern for covid Has provider been notified: No Consult to Pulmonology Routine Consulting Provider: Doug Calvillo Reason for consultation: respiratory failure, pna, sepsis; concern for covid; elevated ddimer Has provider been notified: No DS: Diagnosis Discharge Diagnosis (1) Acute respiratory failure with hypoxia: Status: Acute (2) Sepsis: Status: Acute (3) Tobacco dependence: Status: Acute (4) Pneumonia: Status: Acute (5) Pulmonary nodules: Status: Acute (6) Acute kidney failure: Status: Acute (7) COPD exacerbation: Status: Acute (8) Emphysema lung: Status: Acute DS: Medications Discharge Medications Home Medications: Home Medications albuterol sulfate 2 puff INHALATION Q4-6H PRN #8.5 g 09/29/20 [Rx] cefuroxime axetil 500 mg PO Q12H #6 tab 09/29/20 [Rx] doxycycline monohydrate 100 mg PO BID #6 tab 09/29/20 [Rx] fluticasone propion-salmeterol [Advair HFA] 2 puff INHALATION BID #12 g 09/29/20 [Rx] nicotine 14 mg TRANSDERMAL DAILY #28 ea 09/29/20 [Rx] nicotine (polacrilex) 2 mg BUCCAL Q2H PRN #100 ea 09/29/20 [Rx] prednisone 40 mg PO DAILY #2 tab 09/29/20 [Rx] DS: Summary Hospital Course Hospital Course: From the admission history and physical by hospitalist PATRICIA Steel, 09/24/20: this is a 75-year-old female who presented to the emergency department today with multiple symptoms. Patient saw her daughter on MondaySeptember 19. Her daughter later tested positive for COVID-19. For the past 2 days she reports decreased p.o. intake, generalized weakness, body aches, dry cough. She denies fever. COVID screening in the emergency department was negative. Her lab work was significant for lactic acid 3.4, leukocytosis 12.3. Ferritin 361, LDH 417, procalcitonin 0.49. CT scan of the chest showed concern for pneumonia. She was started on IV antibiotics. patient also reports she is being treated for outpatient UTI with Macrobid. Her urinalysis today is positive. she denies any dysuria at this time. She denies vomiting or diarrhea. She was admitted to the [facility] with severe sepsis due to pneumonia, which was treated with doxycycline and ceftriaxone. Blood cultures were negative. She was tested for SARS-CoV2 by PCR 09/24/20 and again 09/28/20 and both tests were negative.; last contact with the index case was on 09/19/20 and she should remain in quarantine for 14 days from that date, so until 10/02/20. Her inflammatory markers improved as her sepsis resolved. She was placed on supplemental oxygen, which was gradually decreased; she was discharged home on 1L of home oxygen to use with ambulation. She was newly diagnosed with COPD/emphysema and was treated with prednisone burst. She was also started on LABA/ICS inhaler in consultation with Pulmonology. She will need Pulmonology follow-up upon discharge as well as repeat CT of the chest in 3 months to follow up multiple subcentimeter pulmonary nodules. She will take 1 more day of prednisone and 3 more days of antibiotics [doxycycline plus cefuroxime]. The prior UTI should be covered by the cephalosporins. She had very mild NAZARIO as well as lactic acidosis that resolved after fluid resuscitation. Smoking cessation was counseled and she was discharged on combination NRT with patch and gum. Visiting nurse services were arranged for her given the new O2 requirement and new COPD diagnosis. Time Spent with Patient Time attestation: Total time spent providing and/or coordinating discharge services: 40 Physical Exam Vital Signs: Vital Signs: Last Vital Signs Temp 97 F 09/29/20 15:28 Pulse 65 09/29/20 15:28 Resp 18 09/29/20 15:28 BP 119/67 09/29/20 15:28 Pulse Ox 91 L 09/29/20 15:28 Body Mass Index 24.0 Gen: in no acute distress HEENT: sclera anicteric, moist mucus membranes Neck: supple Lungs: clear to auscultation bilaterally Heart: regular rate and rhythm, no murmurs Abd: soft, non-tender, non-distended Ext: no edema Skin: warm/well-perfused Neuro: alert and oriented x3, no focal findings Psych: appropriate affect DS: Data Data Completed and Pending Labs on day of discharge: Laboratory Results WBC 10.7 X10*3/uL (4.8-10.8) 09/29/20 05:37 RBC 3.68 X10*6/uL (4.20-5.50) L 09/29/20 05:37 Hgb 10.8 g/dl (12.0-16.0) L 09/29/20 05:37 Hct 32.5 % (37-47) L 09/29/20 05:37 MCV 88.3 fL (80-98) 09/29/20 05:37 MCH 29.3 pg (27.0-33.0) 09/29/20 05:37 MCHC 33.2 g/dl (31.0-35.0) 09/29/20 05:37 RDW 13.9 % (11.0-16.0) 09/29/20 05:37 Plt Count 288 X10*3/uL (160-400) 09/29/20 05:37 MPV 10.5 fL (9.4-12.3) 09/29/20 05:37 Immature Gran % (Auto) 3.3 % (0.0-0.4) H 09/29/20 05:37 Neut % (Auto) 49.6 % (45-73) 09/29/20 05:37 Lymph % (Auto) 32.4 % (20-40) 09/29/20 05:37 [place] % (Auto) 11.4 % (2-11) H 09/29/20 05:37 Eos % (Auto) 2.8 % (0-4) 09/29/20 05:37 Baso % (Auto) 0.5 % (0-2) 09/29/20 05:37 Lymph # (Auto) 3.5 X10*3/uL (1.2-4.9) 09/29/20 05:37 [place] # (Auto) 1.2 X10*3/uL (0.1-1.2) 09/29/20 05:37 Eos # (Auto) 0.3 X10*3/uL (0.0-0.4) 09/29/20 05:37 Baso # (Auto) 0.1 X10*3/uL (0.0-0.2) 09/29/20 05:37 Abs Immat Gran (auto) 0.35 X10*3/uL (0.00-0.03) H 09/29/20 05:37 Absolute Neuts (auto) 5.3 X10*3/uL (2.0-8.3) 09/29/20 05:37 Absolute Nucleated RBC 0.000 X10*3/uL (0.0-0.012) 09/29/20 05:37 Nucleated RBC % (auto) 0.0 /100WBC (0.0-0.2) 09/29/20 05:37 Neutrophils % (Manual) 63 % (45-73) 09/24/20 07:54 Band Neutrophils % 26 % (3-5) H 09/24/20 07:54 Lymphocytes % (Manual) 2 % (20-40) L 09/24/20 07:54 Monocytes % (Manual) 4 % (2-11) 09/24/20 07:54 Eosinophils % (Manual) 5 % (0-4) H 09/24/20 07:54 Abs Neuts (Manual) 10.9 X10*3/uL (2.2-7.9) H 09/24/20 07:54 Lymphocytes # (Manual) 0.2 X10*3/uL (0.6-4.8) L 09/24/20 07:54 Monocytes # (Manual) 0.5 X10*3/uL (0.0-1.2) 09/24/20 07:54 Eosinophils # (Manual) 0.6 X10*3/UL (0.0-0.8) 09/24/20 07:54 Toxic Vacuolation PRESENT 09/24/20 07:54 Platelet Estimate NORMAL (NORMAL) 09/24/20 07:54 Plt Morphology Comment NORMAL 09/24/20 07:54 RBC Morphology NOTED 09/24/20 07:54 [place] Cells 1+ 09/24/20 07:54 PT 14.2 SEC (10.8-13.0) H 09/24/20 07:54 INR 1.2 (0.9-1.1) H 09/24/20 07:54 APTT 32.9 SEC (24.1-38.0) 09/24/20 07:54 D-Dimer 892 NG/ML 09/28/20 05:23 Sodium 142 mmol/L (135-145) 09/28/20 05:23 Potassium 4.0 mmol/l (3.3-5.1) 09/28/20 05:23 Chloride 109 mmol/L (96-108) H 09/28/20 05:23 Carbon Dioxide 25 mmol/L (22-29) 09/28/20 05:23 Anion Gap 12 (-) 09/28/20 05:23 BUN 13 mg/dL (9-16) 09/28/20 05:23 Creatinine 0.62 mg/dL (0.5-1.4) 09/28/20 05:23 Estim Creat Clear Calc 69.7 09/28/20 05:23 Estimated GFR > 60 09/28/20 05:23 Random Glucose 86 mg/dL (60-115) 09/28/20 05:23 Lactic Acid 3.4 mmol/L (0.5-2.0) H* 09/24/20 07:54 Lactic Acid Fup @ 2Hr 1.3 mmol/L (0.5-2.0) 09/24/20 10:27 Calcium 8.1 mg/dL (8.4-10.2) L 09/28/20 05:23 Magnesium 2.1 mg/dL (1.6-2.6) 09/27/20 01:30 Ferritin 451 ng/mL (10-250) H 09/27/20 01:30 Total Bilirubin 0.4 mg/dL (0.0-1.0) 09/29/20 05:37 Direct Bilirubin 0.2 mg/dL (0.0-0.5) 09/29/20 05:37 AST 22 U/L (5-31) D 09/29/20 05:37 ALT 74 U/L (0-31) H 09/29/20 05:37 Alkaline Phosphatase 151 U/L (39-117) H 09/29/20 05:37 Lactate Dehydrogenase 211 U/L (122-220) 09/28/20 05:23 Troponin I High Sens 9.0 ng/L (<3.5-17.0) D 09/24/20 19:11 C-Reactive Protein 10.49 mg/dL (< or = 0.50) H 09/27/20 01:30 B-Natriuretic Peptide 393 pg/mL (<100) H 09/24/20 07:53 Total Protein 4.9 g/dL (6.5-8.0) L 09/29/20 05:37 Albumin 3.1 g/dL (3.5-5.0) L 09/29/20 05:37 Procalcitonin 0.14 ng/mL 09/27/20 05:51 Urine Color DARK YELLOW 09/24/20 08:55 Urine Appearance HAZY 09/24/20 08:55 Urine pH 5.5 (5.0-8.0) 09/24/20 08:55 Ur Specific [place] 1.025 (1.005-1.025) 09/24/20 08:55 Urine Protein 2+ MG/DL (NEG-TRACE) H 09/24/20 08:55 Urine Glucose (UA) NEG MG/DL (NEG) 09/24/20 08:55 Urine Ketones NEG MG/DL (NEG) 09/24/20 08:55 Urine Blood 2+ (NEG) H 09/24/20 08:55 Urine Nitrite NEG (NEG) 09/24/20 08:55 Ur Leukocyte Esterase 2+ (NEG) H 09/24/20 08:55 Urine RBC 5-9 /HPF (0) H 09/24/20 08:55 Urine WBC 76-150 /HPF (0-4) H 09/24/20 08:55 Ur Squamous Epith Cells 3+ /LPF 09/24/20 08:55 Ur Renal Epithelial Cell 1+ /LPF 09/24/20 08:55 Urine Bacteria 3+ /LPF 09/24/20 08:55 Urine Mucus 3+ /LPF 09/24/20 08:55 Coronavirus (PCR) NEGATIVE (Negative) 09/24/20 08:01 SARS-CoV-2 (PCR) Cancelled 09/28/20 08:03 COVID-19 ([facility]CHOR) Negative (Negative) 09/28/20 12:49 COVID-19 Clin Com See Note 09/28/20 12:49 Influenza Type A (PCR) NEGATIVE (Negative) 09/24/20 08:01 Influenza Type B (PCR) NEGATIVE (Negative) 09/24/20 08:01 RSV RNA Qual (PCR) NEGATIVE (Negative) 09/24/20 08:01 SARS-CoV-2 IgG Ab Negative (Negative) 09/25/20 10:19 Pending laboratory studies: HBV/HCV/HIV serologies (sent due to mild transaminitis, though likely this was due to sepsis) Impressions Chest X-Ray 09/24/20 07:32 IMPRESSION: Mild interstitial disease lung bases which may be acute or chronic in nature. No significant confluent parenchymal disease with question small right pleural effusion. Chest CT 09/24/20 09:44 IMPRESSION: Emphysema with bibasilar infiltrates and small bilateral pleural effusions/thickening Pulmonary Perfusion Imaging 09/24/20 15:25 IMPRESSION: Normal radionuclide lung perfusion scan. Discharge Plan Discharge Anticipated Discharge Date/Time: 09/29/20 15:34 Patient Disposition: Home Health Service Referrals: [place] [phone] [Other] [facility] [Outside] Olvin Gorman [Primary Care Provider] - Doug Calvillo MD [Physician] - Discharge Medications: New nicotine 14 mg/24 hr Patch 24 Hour 14 mg transdermal DAILY Qty: 28 RF: 0 prednisone 20 mg Tablet 40 mg PO DAILY Qty: 2 RF: 0 nicotine (polacrilex) 2 mg gum 2 mg buccal Q2H PRN (Reason: nicotine cravings) Qty: 100 RF: 0 doxycycline monohydrate 100 mg tablet 100 mg PO BID Qty: 6 RF: 0 cefuroxime axetil 500 mg tablet 500 mg PO Q12H Qty: 6 RF: 0 Advair HFA 115-21 mcg/actuation HFA aerosol inhaler 2 puff inhalation BID Qty: 12 RF: 0 albuterol sulfate 90 mcg/actuation HFA aerosol inhaler 2 puff inhalation Q4-6H PRN (Reason: shortness of breath or wheezing) Qty: 8.5 RF: 0 Discharge Orders: Discharge Order (Routine); Ordered 09/29/20 Ordered By: Carolyn Camilo Diet: regular diet Activity on Discharge: home O2 1L Patient Instructions: COPD (Chronic Obstructive Pulmonary Disease) (DC), Pneumonia (DC), Chronic Lung Disease and Infection Prevention (DC) Other Ambulatory Orders: CT chest wo con (Routine) Timeframe: 3 Months Facility: [facility] - Location: CT Scan Ordered By: Carolyn Camilo Visit Report Forms: Patient Portal Discharge page Care Plan Goals: relief of cough/wheezing/shortness of breath Health Concerns: pneumonia, newly diagnosed COPD/emphysema, tobacco abuse Plan of Treatment: Pneumonia Take antibiotics: doxycycline 100 mg twice daily for 3 days PLUS cefuroxime 500 mg twice daily for [address] of the chest in 3 months to follow small nodules COPD/emphysema Start controller inhaler: Advair 2 puffs twice daily Use rescue inhaler: albuterol 2 puffs every 4 hours as needed Follow up with Pulmonology (Dr Calvillo) in 2 weeks: [phone] [place] [id number] Use 1 liter of oxygen with ambulation. Tobacco abuse Quit smoking. Use nicotine patch and gum to quit. COVID exposure Your PCR tests were negative on 09/24/20 and again 09/28/20. You should remain in quarantine until 10/02/20, given the last date of exposure was 09/19/20 [total 14 days of quarantine].
--- NOTE | 2020-09-29 15:32 | W.MHC.F2F ---
Service Date Service Date: 09/29/20 Encounter Date of encounter: 09/29/20 Reasons for Services Reason for prison: medication management, medication treatment, teach disease management and other (new home O2 requirement, new COPD diganosis) Reason for physical therapy: home safety and mobility, therapeutic exercises, gait/transfer training, assess need for DME and ADL training MD Overseeing Care: Olvin Gorman Homebound: Leaving the home is medically contraindicated at this time without the asist of a device and/or another person due th the listed conditions above and below. Reason homebound: shortness of breath with minimal effort Homebound supporting statement: Patient was admitted to [facility] 09/24/20-09/29/20 with pneumonia and newly diagnosed COPD. Certification: Based on the above findings, I certify that this patient is confined to the home and needs intermittent prison care, physical therapy and/or speech therapy, or continues to need occupational therapy. The patient is under my care, and I have initiated the establishment of the plan of care. The patient will be followed by a physician who will periodically review the plan of care.
--- NOTE | 2020-09-29 15:48 | MHC.CM.PN ---
Patient will be discharging home today with O2 from [facility]. patient should be at 1 liter O2 continuous. Family will provide transport.
[2020-09-30 08:05] LABS: HIV AB/AG Nonreactive (Nonreactive); HIV Num 1 0.12 S/CO (0.00-0.99)
[2020-09-30 08:18] LABS: HBsAGNum1 0.21 S/CO (0.00-0.99); Hepatitis B Core Antibody Nonreactive (Nonreactive); Hepatitis B Surface Antigen Negative (Negative)
[2020-09-30 08:32] LABS: HBS Num1 0.56 mIU/mL (0-7.99); ~HepC Num1 0.08 S/CO (0.00-0.79); ~Hepatitis B Surface Antibody NONREACTIVE (Nonreactive); ~Hepatitis C Antibody Nonreactive (Nonreactive)
[2020-10-01 03:52] LABS: Strep Pneumo Ag urine Not Detected (Not Detected)
[2020-10-01 19:53] LABS: Legionella Ag Urine Not Detected (Not Detected)
== END 2020-09-29 16:50 | disposition home health service (06) | DRG 871 ==
LOC: HO.ED 15:38 → HO.IMC 17:30
PROVIDERS: Hospitalist; Internal Medicine; Physician Assistant Medical; Admitting Provider Internal Medicine; Emergency Provider Emergency Medicine; PCP Hospitalist; Visit Provider Family Medicine
DX: A41.9 Sepsis, unspecified organism (principal); J96.01 Acute respiratory failure with hypoxia; J18.9 Pneumonia, unspecified organism; N39.0 Urinary tract infection, site not specified; N17.9 Acute kidney failure, unspecified; R65.20 Severe sepsis without septic shock; J43.2 Centrilobular emphysema; R91.8 Other nonspecific abnormal finding of lung field; F17.210 Nicotine dependence, cigarettes, uncomplicated; R74.01 Elevation of levels of liver transaminase levels; Z71.6 Tobacco abuse counseling; Z20.828 Contact with and (suspected) exposure to other viral communicable diseases; Z79.51 Long term (current) use of inhaled steroids; Z79.52 Long term (current) use of systemic steroids; Z79.899 Other long term (current) drug therapy
CPT/HCPCS: 0241U; 36415; 71045; 71250; 78580; 80048; 80053; 80076; 81001; 82728; 83605; 83615; 83735; 83880; 84145; 84484; 85007; 85025; 85027; 85379; 85610; 85730; 86140; 86704; 86706; 86769; 86803; 87040; 87086; 87340; 87389; 87449; 87635; 87899; 93005; 94640; 96361; 96365; 97161; 97165; 99283; 99285; 99291; A9540; J0461; J0696; J1650; J8540; P9047; U0003